=== PATIENT | female | born 1965 | race Caucasian/White ===

== ENCOUNTER 2020-05-13 17:12 | Outpatient (CLI) | payer BC, SELFPAY ==
--- NOTE | ~2020-05-13 | MM_ITS ---
EXAMINATION: MM screening zaida BI w cony HISTORY: Screening mammogram TECHNIQUE: Craniocaudal and mediolateral oblique 3-D tomosynthesis images were obtained and synthetic 2-D images were generated. CAD analysis was submitted and interpreted. COMPARISON: 08/20/2018, 05/05/2016, 03/09/2015 bilateral digital screening mammogram examinations BREAST PARENCHYMAL COMPOSITION: The breasts are heterogeneously dense, which may obscure small masses . FINDINGS: There are occasional scattered benign calcifications. There is no evidence of suspicious ma ss, calcification, or architectural distortion to suggest malignancy in either breast. There has been no suspicious interval change. IMPRESSION: 1. No mammographic evidence of malignancy. 2. Recommend routine screening mammography in one year. BI-RADS Category 2: Benign finding(s). Reviewed, dictated and finalized at location A. [employer]
== END 2020-05-13 17:13 | disposition home or self-care (01) ==
LOC: ANHIMG 17:15
PROVIDERS: Family Provider Family Medicine; PCP Internal Medicine; Visit Provider Student in an Organized Health Care Education/Training Program
DX: Z12.31 Encounter for screening mammogram for malignant neoplasm of breast (principal)
CPT/HCPCS: 77063; 77067

== ENCOUNTER 2021-08-29 00:38 | Day surgery (SDC) | payer BC, SELFPAY ==
[2021-08-11 15:11] VITALS: BMI 34.2
--- NOTE | 2021-08-29 07:27 | PM.HPGS ---
History of Present Illness History of Present Illness Consent: Risks, benefits, and alternatives have been discussed and questions answered. Patient agrees to proceed with procedure. Chief complaint: neoplasm screening Narrative: Fouzia Gunter is a 55 year old female Referred for colon cancer screening. Review of Systems Review of Systems: All systems reviewed & are unremarkable except as noted in HPI and below PMFSH Past Medical History Medical History Hypertension Miscarriage x5 Vaginal delivery x 2 Surgical History Surgical History History of dilation and curettage x 2 History of endometrial ablation History of laparoscopy History of tubal ligation S/P cholecystectomy Family History Family History Sibling Hypertension Mother Family history of chronic obstructive pulmonary disease Hypertension Cerebrovascular accident Father Family history of lung cancer Family history of malignant neoplasm of bone Family history of malignant neoplasm of breast in first degree relative Family history of Hodgkin's lymphoma Grandparent Family history of malignant neoplasm of breast in first degree relative Other Diabetes mellitus Social History Social History Smoking status: Never smoker Second hand tobacco smoke exposure: No Alcohol intake: never Substance use: never Substance use type: does not use Living arrangements: alone Spiritual care concerns: No Meds Home Medications and Allergies Home Medications Medication Instructions Recorded Confirmed Type metoprolol tartrate 50 mg tablet 50 mg PO DAILY 10/13/19 08/11/21 History folic acid 1 mg PO DAILY 08/11/21 08/11/21 History methotrexate sodium 0.7 mg SUBCUT WEEKLY 08/11/21 08/11/21 History Allergies Allergy/AdvReac Type Severity Reaction Status Date / Time amoxicillin [From Augmentin] Allergy Mild stomach Verified 08/29/21 09:37 pain clavulanic acid Allergy Mild stomach Verified 08/29/21 09:37 [From Augmentin] pain grass pollen Allergy Unknown uhnknown Verified 08/29/21 09:37 Sulfa (Sulfonamide Allergy Unknown unknown Verified 08/29/21 09:37 Antibiotics) sulfanilamide Allergy Unknown unknown Verified 08/29/21 09:37 tetanus toxoid, adsorbed Allergy Unknown unknown Verified 08/29/21 09:37 Tetanus Vaccines and Toxoid Allergy Unknown unknown Verified 08/29/21 09:37 1.SULFA 2.TETANUS Allergy Unknown unknown Uncoded 08/29/21 09:37 nkfa Allergy Unknown unknown Uncoded 08/29/21 09:37 SULFAMERAZINE (Generic Allergy unknown Uncoded 08/29/21 09:37 Allergy) Exam Resp: Auscultation: clear to auscultation bilaterally Cardio: Rate: regular rate Rhythm: regular rhythm GI: GI Palp: Yes Soft to palpation and No Tenderness to palpation present (GI) Assessment and Plan Assessment and plan (1) Colon cancer screening: Code(s): Z12.11 - Encounter for screening for malignant neoplasm of colon Status: Acute Assessment and Plan: Colonoscopy with possible biopsy or polypectomy or cautery or injection of substances.
[2021-08-29 09:38] VITALS: BP 134/83; PULSE 81; RESP 18; TEMP 37; O2SAT 99
[2021-08-29] MEDS: LACTATED RINGERS 1,000 ML 150 ML IV CONT (09:49)
--- NOTE | 2021-08-29 10:08 | WPDANESEPPF ---
Anes - Initial Pre Proc Eval Procedure: Operation Date: 08/29/21 10:30 Proposed Procedures p Screening Colonoscopy - Manuel Flores MD Date/Time: 08/29/21 10:08 Surgeon: Manuel Flores MD Pre Op Diagnosis: neoplasm screening Patient Data Age: 55 Gender: F Height: 1.75 m Weight: 103.5 kg Last Vital Signs Temp 98.6 F 08/29/21 09:38 Pulse 81 08/29/21 09:38 Resp 18 08/29/21 09:38 BP 134/83 08/29/21 09:38 Pulse Ox 99 08/29/21 09:38 Allergies Allergy/AdvReac Type Severity Reaction Status Date / Time amoxicillin [From Augmentin] Allergy Mild stomach Verified 08/29/21 09:37 pain clavulanic acid Allergy Mild stomach Verified 08/29/21 09:37 [From Augmentin] pain grass pollen Allergy Unknown uhnknown Verified 08/29/21 09:37 Sulfa (Sulfonamide Allergy Unknown unknown Verified 08/29/21 09:37 Antibiotics) sulfanilamide Allergy Unknown unknown Verified 08/29/21 09:37 tetanus toxoid, adsorbed Allergy Unknown unknown Verified 08/29/21 09:37 Tetanus Vaccines and Toxoid Allergy Unknown unknown Verified 08/29/21 09:37 1.SULFA 2.TETANUS Allergy Unknown unknown Uncoded 08/29/21 09:37 nkfa Allergy Unknown unknown Uncoded 08/29/21 09:37 SULFAMERAZINE (Generic Allergy unknown Uncoded 08/29/21 09:37 Allergy) Home Medications Medication Instructions Recorded Confirmed Type metoprolol tartrate 50 mg tablet 50 mg PO DAILY 10/13/19 08/11/21 History folic acid 1 mg PO DAILY 08/11/21 08/11/21 History methotrexate sodium 0.7 mg SUBCUT WEEKLY 08/11/21 08/11/21 History Patient hx anesthesia problems: none Family hx anesthesia problems: none Results Review: All pre-operative results and documents have been reviewed as part of the pre-operative evaluation. [facility] Past Medical History Medical History Hypertension Miscarriage x5 Vaginal delivery x 2 Surgical History Surgical History History of dilation and curettage x 2 History of endometrial ablation History of laparoscopy History of tubal ligation S/P cholecystectomy Family History Family History Sibling Hypertension Mother Family history of chronic obstructive pulmonary disease Hypertension Cerebrovascular accident Father Family history of lung cancer Family history of malignant neoplasm of bone Family history of malignant neoplasm of breast in first degree relative Family history of Hodgkin's lymphoma Grandparent Family history of malignant neoplasm of breast in first degree relative Other Diabetes mellitus Social History Social History Smoking status: Never smoker Second hand tobacco smoke exposure: No Alcohol intake: never Substance use: never Substance use type: does not use Living arrangements: alone Spiritual care concerns: No Anes - Eval Final PreProcedure Day of Procedure 08/29/21 10:08 Patient weight: obese Heart: regular rate and rhythm Lungs: clear to auscultation Airway: Mallampati scale class II Neurological: alert and oriented Last oral intake: >/= 8 hours ASA classification: III Emergent: no Anesthetic plan: proceed Anesthesia type and monitoring: general GIVS and standard monitoring Results Review: All pre-operative results and documents have been reviewed as part of the pre-operative evaluation. Informed Consent: The patient's anesthetic plan and its attendant risks and benefits were discussed with the patient/family/POA. Questions were solicited and answers provided to the satisfaction of the patient/family/POA.
[2021-08-29] MEDS: SIMETHICONE ORAL SUSPENSION 20 MG/0.3 ML 30 ML BOTTLE 0.6 ML IRRIGATION (10:29)
[2021-08-29 10:38] VITALS: BP 128/70; PULSE 90; RESP 22; O2SAT 99
[2021-08-29 10:48] VITALS: BP 125/68; PULSE 66; RESP 15; O2SAT 99
[2021-08-29 10:58] VITALS: BP 130/77; PULSE 71; RESP 19; O2SAT 99
== END 2021-08-29 11:02 | disposition home or self-care (01) ==
PROVIDERS: PCP Nurse Practitioner Family; Visit Provider Internal Medicine Gastroenterology
PROC: 0DJD8ZZ Inspection of Lower Intestinal Tract, Via Natural or Artificial Opening Endoscopic (ICD-10-PCS; CPT 45378; principal; 2021-08-29 10:30)
DX: Z12.11 Encounter for screening for malignant neoplasm of colon (principal); K57.30 Diverticulosis of large intestine without perforation or abscess without bleeding; K64.8 Other hemorrhoids; I10 Essential (primary) hypertension; E66.9 Obesity, unspecified; Z68.33 Body mass index [BMI] 33.0-33.9, adult
CPT/HCPCS: 45378; J2704; J7120

== ENCOUNTER 2021-10-22 09:27 | Outpatient (CLI) | payer BC, SELFPAY ==
--- NOTE | ~2021-10-22 | MM_ITS ---
EXAMINATION: MM screening zaida BI w cony HISTORY: Screening mammogram TECHNIQUE: Craniocaudal and mediolateral oblique 3-D tomosynthesis images were obtained and synthetic 2-D images were generated. CAD analysis was submitted and interpreted. COMPARISON: No prior mammogram is available for comparison at this institution. BREAST PARENCHYMAL COMPOSITION: The breasts are heterogeneously dense, which may obscure small masses . FINDINGS: There is no suspicious mass, calcification, or architectural distortion to suggest malignan cy in either breast. There has been no suspicious interval change. IMPRESSION: 1. No mammographic evidence of malignancy. 2. Recommend routine screening mammography in one year. BI-RADS Category 1: Negative Reviewed, dictated and finalized at location A.
== END 2021-10-22 09:28 | disposition home or self-care (01) ==
PROVIDERS: PCP Nurse Practitioner Family; Visit Provider Student in an Organized Health Care Education/Training Program
DX: Z12.31 Encounter for screening mammogram for malignant neoplasm of breast (principal)
CPT/HCPCS: 77063; 77067

== ENCOUNTER 2023-02-07 16:05 | Outpatient (CLI) | payer BC, SELFPAY ==
--- NOTE | ~2023-02-07 | MM_ITS ---
EXAMINATION: MM screening zaida BI w cony HISTORY: Screening mammogram TECHNIQUE: Craniocaudal and mediolateral oblique 3-D tomosynthesis images were obtained and synthetic 2-D images were generated. CAD analysis was submitted and interpreted. COMPARISON: 10/22/2021, 05/05/2020, 08/20/2018 bilateral screening mammogram examinations BREAST PARENCHYMAL COMPOSITION: The breasts are heterogeneously dense, which may obscure small masses . FINDINGS: There is no evidence of suspicious mass, calcification, or architectural distortion to sugg est malignancy in either breast. There has been no suspicious interval change. IMPRESSION: 1. No mammographic evidence of malignancy. 2. Recommend routine screening mammography in one year. BI-RADS Category 1: Negative Reviewed, dictated and finalized at location A.
== END 2023-02-07 16:06 | disposition home or self-care (01) ==
LOC: ANHIMG 16:07
PROVIDERS: PCP Nurse Practitioner Family; Visit Provider Registered Nurse
DX: Z12.31 Encounter for screening mammogram for malignant neoplasm of breast (principal)
CPT/HCPCS: 77063; 77067

== ENCOUNTER 2023-07-18 12:33 | Outpatient (CLI) | payer BC, SELFPAY ==
--- NOTE | ~2023-07-18 | DEXA_ITS ---
Bone Density Report Name: GENE CAMPBELL Age: 57 Sex: Female Ethnicity: White Date of : 1965 Indication: postmenopausal; screening for osteoporosis; height loss; history of glucocorticoids; rheumatoid arthritis; secondary osteoporosis; Referring Provider: TATIANNA CRANE Study: Bone densitometry was performed. Exam Date: July 18, 2023 Accession number: [id number] Bone Density: Region BMD T-score Z-score Classification AP Spine(L1-L4) 0.844 -1.8 -0.5 Osteopenia Femoral Neck (Left) 0.846 0.0 1.2 Normal Total Hip (Left) 0.888 -0.4 0.4 Normal Femoral Neck (Right) 0.865 0.1 1.4 Normal Total Hip (Right) 0.880 -0.5 0.4 Normal Total Hip Mean 0.884 -0.5 0.4 Normal World Health Organization criteria for BMD impression classify patients as: Normal (T-score at or above -1.0), Osteopenia (T-score between -1.0 and -2.5), or Osteoporosis (T-score at or below -2.5). 10-year Fracture Risk(1): Major Osteoporotic Fracture 11% Hip Fracture 0.3% Reported Risk Factors: [place] (), Neck BMD=0.846, BMI=34.2, glucocorticoids, rheumatoid arthritis, secondary osteoporosis (1) FRAX(R) Version 3.08. Fracture probability calculated for an untreated patient. Fracture probability may be lower if the patient has received treatment. Clinical Information Provided by Patient: Has taken Glucocorticoids Has rheumatoid arthritis Has secondary osteoporosis Patient maximum height was 71 No regular weight bearing exercise Onset of menses at age 13 Number of children 2 Missed period for more than 6 months in a row Impression: The patient has low bone mass, based on the Total Spine T-score. The patient has an estimated ten-year risk of hip fracture of 0.3% and an estimated ten-year risk of major fracture of 11%, based on the WHO FRAX algorithm. The patient has risk factors, including: history of glucocorticoid therapy. Discussion: BONE DENSITY IS LOW AT ONE OR MORE SKELETAL SITES. This patient's lowest T-score is low at one or more skeletal sites. It meets the World Health Organization's (WHO) criteria for ?low bone mass? (T-score between -1.0 and -2.5). The patient's 10-year risk of fracture as calculated by FRAX is less than the threshold where pharmacological therapy is recommended by the National Osteoporosis Foundation (NOF). However, all treatment decisions require clinical judgment and consideration of individual patient factors, including patient preferences, comorbidities, previous drug use, risk factors not captured in the FRAX model (e.g., frailty, falls, vitamin D deficiency, increased bone turnover, interval significant decline in bone density) and possible under or overestimation of fracture risk by FRAX. The patient should follow a healthful lifestyle (good nutrition with adequate calcium and
== END 2023-07-18 12:34 | disposition home or self-care (01) ==
LOC: ANHIMG 12:36
PROVIDERS: PCP Nurse Practitioner Family
DX: Z78.0 Asymptomatic menopausal state (principal); M85.88 Other specified disorders of bone density and structure, other site
CPT/HCPCS: 77080

== ENCOUNTER 2024-06-09 15:19 | Outpatient (CLI) | payer BC, SELFPAY ==
--- NOTE | ~2024-06-09 | MM_ITS ---
EXAMINATION: MM screening zaida BI w cony HISTORY: Screening mammogram, family history of breast cancer in her sister. TECHNIQUE: Craniocaudal and mediolateral oblique 3-D tomosynthesis images were obtained and synthetic 2-D images were generated. CAD analysis was submitted and interpreted. COMPARISON: 02/07/2023, 10/22/2021, 05/13/2020 BREAST PARENCHYMAL COMPOSITION:Not Dense. There are scattered areas of fibroglandular density. FINDINGS: No suspicious mass, calcification, or architectural distortion are identified in either angelica ast to suggest malignancy. There has been no suspicious interval change. IMPRESSION: No mammographic evidence of malignancy. Recommend routine screening mammography in one year. BI-RADS Category 1: Negative Reviewed, dictated and finalized at location . OWS SOFTWARE DEVELOPER
--- OUTSIDE RECORDS SUMMARY | 2024-06-09 17:54 | XMS_ITS | Referral Summary ---
Author Organization [facility] [place] [facility] Address [address] [place] [id number] Care Team Providers Care Municipal Firefighter Name Role Phone CharlyRadha oneil YONATAN Primary Care Provider [phone] Allergies Active Allergy Reactions Criticality Noted Date Comments Amoxicillin-Pot Clavulanate Stomach upset High 06/04 Sulfa Dyne Urticaria Medium 03/31/2021 Tetanus And Diphther. Tox (Pf) Anaphylaxis High 05/17 Medications folic acid (FOLVITE) 1 mg tablet Take 1 tablet (1,000 mcg total) by mouth daily Active methotrexate 25 mg/mL injection solution methotrexate sodium 25 mg/mL solution 0 Active metoprolol XL (TOPROL-XL) 25 mg extended release tablet metoprolol succinate 25 mg tablet extended release 24 hr 1 Active multivit [id number]-AD-[id number] b 186 (Hair, Skin and Nails Advanced) 3.3 mg iron-25 mcg tablet Take by mouth 9 Active nystatin 100,000 unit/mL suspension SHAKE LIQUID AND TAKE 5 ML BY MOUTH FOUR TIMES DAILY 3 Active valACYclovir (VALTREX) 1 gram tablet Take 1 tablet (1,000 mg total) by mouth 2 (two) times a day 3 Active gabapentin (NEURONTIN) 300 mg capsuleIndicati ons:Neuropathic Pain Take 1 capsule (300 mg total) by mouth as directed Take 300 mg by mouth each night for one week, then take 300 mg twice day for one week, then take 300 mg three times a day thereafter 90 capsule 3 3 Active Active Problems No known active problems Social History Tobacco Use Types Packs/Day Years Used Date Smoking Tobacco: Never Smokeless Tobacco: Never Tobacco Cessation:Counseling Given: No Personal Safety Answer Date Recorded Getting School Help Needed Not on file 06/10 Comments Unknown Sex and Gender Information Value Date Recorded Sex Assigned at Not on file 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
--- OUTSIDE RECORDS SUMMARY | 2024-06-09 17:54 | XMS_ITS | Clinical Summary ---
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 Gender Identity Not on file Sexual Orientation Not on file Obstetrics History Last Filed Vital Signs Vital Sign Reading [...] 12/21/2022 2:10 PM CDT Plan of Treatment Health Maintenance Due Date Last Done Comments Breast Cancer Screening-Mammogram 1965 Cervical Cancer Screening 1965 Colon Cancer Screening-Colonoscopy 1965 Depression Screening 1965 Hepatitis C Screening 1965 DTaP/Tdap/Td Vaccine (1 - Tdap) 10/16/1975 Hepatitis B Screening 1982 Regular Well Visit/Exam 18-64 1982 Pneumococcal vaccine <65 (1 of 2 - PCV) 10/16/1983 Influenza Vaccine (#1) 2023 Zoster Vaccine Completed 11/21/2021, 10/06/2021 Insurance CHOICE [facility] PPO [place] Care Teams Pastry Wrapper Relationship Specialty Start Date End Date Radha Rincon NP PCP - General Nurse Practitioner 11/14/22
--- OUTSIDE RECORDS SUMMARY | 2024-06-09 17:55 | XMS_ITS | Patient Health Summary ---
Author Organization [facility] Address [address] [place] [address] Care Team Providers Care Fisher Quahog Name Role Phone Ly Wilson Primary Care Provider [phone] Note from [facility],non-owned Affiliates and Associated Physician Practices is amultiple site organization consisting of ambulatory clinics and hospital sitesin [place], [place], [place] and [place]. This disclosure is being madepursuant to the Care Everywhere program and may not contain all information available regarding this patient. Last updated 18.[facility] Allergies * Augmentin(GI Discomfort) -Low Criticality * Sulfa Drugs(Urticaria) -Medium Criticality * Sulfacetamide(Rash) -Medium Criticality * Tetanus Toxoid(Swelling,Angioedema) -High Criticality Medications * Be aware that medications may not be up to date on this document. Alwaysverify current medications with the patient. * metoprolol succinate XL 24hr (TOPROL XL) 25 MG tablet(Started 11/12/2020) Take 2 (two) tablets by mouth 1 (one) time * Enbrel AutoTouch AutoInjector(Started 12/26/2023) Use 1 (one) device as directed * Etanercept (Enbrel Mini) 50 MG/ML SOCT(Started 12/26/2023) Inject 50 mg subcutaneously every 7 days Reasons: Rheumatoid Arthritis 3 refills by 12/25/2024 * vitamin D3 (Cholecalciferol) 25 MCG (1000 UNITS) tablet Take 1 (one) tablet by mouth once daily * lactobacillus extra strength (Florajen) capsule Take 1 (one) capsule by mouth 3 times daily * Multiple Vitamins-Minerals (HAIR SKIN & NAILS ADVANCED PO) * folic acid (Folvite) 1 MG tablet(Started 02/20/2024) Take 1 (one) tablet by mouth once daily 3 refills by 02/19/2025 * albuterol HFA (Proventil; Ventolin; Proair) 108 (90 Base) MCG/ACT inhaler (Started 04/22/2024) INHALE 2 PUFFS BY MOUTH EVERY 4 HOURS DIRECTED FOR SHORTNESS OF BREATH * predniSONE (Deltasone) 5 MG tablet(Started 06/02/2024) Take 5 mg daily as needed for arthritis while holding Methotrexate Reasons: Rheumatoid Arthritis * leflunomide (Arava) 20 MG tablet(Started 06/02/2024) Take 1 (one) tablet by mouth once daily 3 refills by 06/02/2025 Ended Medications* predniSONE (Deltasone) 5 MG tablet(Started 08/22/2022) (Discontinued) Take 5 mg daily as needed for arthritis while holding Methotrexate Reasons: Rheumatoid Arthritis * Methotrexate, PF, (Rasuvo) 17.5 MG/0.35ML(Started 12/26/2023)(Discontinued) Inject 17.5 mg subcutaneously every 7 days Reasons: Rheumatoid Arthritis 2 refills by 12/25/2024 Active Problems Problem Noted Date Diagnosed Date 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 01/06/2021 Rheumatoid arthritis involvi ng multiple sites with positive rheumatoid factor 12/02/2020 intermediate current use of immunosuppressive drug 12/02/2020 FAYE positive 12/02/2020 Social History Tobacco Use Types Packs/Day Years Used Date Smoking Tobacco: Never Smokeless Tobacco: Never Tobacco Cessation:Counseling Given: Not Answered Alcohol Use Standard Drinks/Week Comments Not Currently 0 (1 standard drink = 0.6 oz pur e alcohol) PHQ-2 Answer Date Recorded Patient Health Questionnaire-2 Score 0 08/20/2023 Sex and Gender Information Value Date Recorded Sex Assigned at Not on file Gender Identity Not on file Sexual Orientation Not on file Last Filed Vital Signs Vital Sign Reading Time Taken Comments Blood Pressure 134/86 06/02/2024 3:21 PM ELECTRICAL INSTRUMENT REPAIRER Pulse 65 06/02/2024 3:21 PM ELECTRICAL INSTRUMENT REPAIRER Temperature 36.1 C (96.9 F) 06/02/2024 3:21 PM ELECTRICAL INSTRUMENT REPAIRER Respiratory Rate 18 11/02/2021 10:16 AM CDT Oxygen Saturation 96% 06/02/2024 3:21 PM ELECTRICAL INSTRUMENT REPAIRER Inhaled Oxygen Concentration - - Weight 112 kg (247 lb) 06/02/2024 3:21 PM ELECTRICAL INSTRUMENT REPAIRER Height 175.3 cm (5' 9 ) 06/02/2024 3:21 PM ELECTRICAL INSTRUMENT REPAIRER Body Mass Index 36.48 06/02/2024 3:21 PM ELECTRICAL INSTRUMENT REPAIRER Procedures * COMPREHENSIVE METABOLIC PANEL(Performed 05/30/2024) Performed for Rheumatoid arthritis involving multiple sites with positive rheumatoid factor (HCC), 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, 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 * CBC W AUTO DIFFERENTIAL(Performed 05/30/2024) Performed for Rheumatoid arthritis involving multiple sites with positive rheumatoid factor (HCC), 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, 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 * COMPREHENSIVE METABOLIC PANEL(Performed 02/08/2024) Performed for Rheumatoid arthritis involving multiple sites with positive rheumatoid factor (HCC), 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, intermediate current use of immunosuppressive drug, Transaminitis, Anti-TPO antibodies present * CBC W AUTO DIFFERENTIAL(Performed 02/08/2024) Performed for Rheumatoid arthritis involving multiple sites with positive rheumatoid factor (HCC), 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, 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, Transaminitis, Anti-TPO antibodies present * TSH REFLEX FREE T4(Performed 08/28/2023) * COMPREHENSIVE METABOLIC PANEL(Performed 08/28/2023) Performed for Rheumatoid arthritis involving multiple sites with positive rheumatoid factor (HCC), 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, intermediate current use of immunosuppressive drug, Transaminitis, Anti-TPO antibodies present * CBC W AUTO DIFFERENTIAL(Performed 08/28/2023) Performed for Rheumatoid arthritis involving multiple sites with positive rheumatoid factor (HCC), 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, 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, Transaminitis, Anti-TPO antibodies present * COMPREHENSIVE METABOLIC PANEL(Performed 07/12/2023) Performed for 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, Rheumatoid arthritis involving multiple sites with positive rheumatoid factor (HCC), intermediate current use of immunosuppressive drug, Transaminitis * COMPREHENSIVE METABOLIC PANEL(Performed 03/12/2023) Performed for 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, Rheumatoid arthritis involving multiple sites with positive rheumatoid factor (HCC), 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, Transaminitis * COMPREHENSIVE METABOLIC PANEL(Performed 03/02/2023) Performed for Rheumatoid arthritis involving multiple sites with positive rheumatoid factor (HCC), intermediate current use of immunosuppressive drug, 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 * CBC W AUTO DIFFERENTIAL(Performed 03/02/2023) Performed for Rheumatoid arthritis involving multiple sites with positive rheumatoid factor (HCC), 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, 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 * XR WRIST RIGHT 2VW(Performed 02/08/2023) Performed for Rheumatoid arthritis involving multiple sites with positive rheumatoid factor (HCC) * XR HAND RIGHT 3VW OR MORE(Performed 02/08/2023) Performed for Rheumatoid arthritis involving multiple sites with positive rheumatoid factor (HCC) * XR HAND LEFT 3VW OR MORE(Performed 02/08/2023) Performed for Rheumatoid arthritis involving multiple sites with positive rheumatoid factor (HCC) * XR FOOT RIGHT 3VW OR MORE(Performed 02/08/2023) Performed for Rheumatoid arthritis involving multiple sites with positive rheumatoid factor (HCC) * XR FOOT LEFT 3VW OR MORE(Performed 02/08/2023) Performed for Rheumatoid arthritis involving multiple sites with positive rheumatoid factor (HCC) * XR WRIST LEFT 2VW(Performed 02/08/2023) Performed for Rheumatoid arthritis involving multiple sites with positive rheumatoid factor (HCC) * COMPREHENSIVE METABOLIC PANEL(Performed 10/12/2022) Performed for 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, Rheumatoid arthritis involving multiple sites with positive rheumatoid factor (HCC), intermediate current use of immunosuppressive drug, Transaminitis * CBC W AUTO DIFFERENTIAL(Performed 10/12/2022) Performed for Rheumatoid arthritis involving multiple sites with positive rheumatoid factor (HCC), 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, 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 * COMPREHENSIVE METABOLIC PANEL(Performed 09/04/2022) Performed for 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, Rheumatoid arthritis involving multiple sites with positive rheumatoid factor (HCC), intermediate current use of immunosuppressive drug, Transaminitis * CBC W AUTO DIFFERENTIAL(Performed 09/04/2022) Performed for Rheumatoid arthritis involving multiple sites with positive rheumatoid factor (HCC), 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, intermediate current use of immunosuppressive drug * COMPREHENSIVE METABOLIC PANEL(Performed 08/21/2022) Performed for Rheumatoid arthritis involving multiple sites with positive rheumatoid factor (HCC), 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, 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 * CBC W AUTO DIFFERENTIAL(Performed 08/21/2022) Performed for Rheumatoid arthritis involving multiple sites with positive rheumatoid factor (HCC), 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, intermediate current use of immunosuppressive drug * COMPREHENSIVE METABOLIC PANEL(Performed 08/14/2022) Performed for Rheumatoid arthritis involving multiple sites with positive rheumatoid factor (HCC), 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, 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 * CBC W AUTO DIFFERENTIAL(Performed 08/14/2022) Performed for Rheumatoid arthritis involving multiple sites with positive rheumatoid factor (HCC), 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, intermediate current use of immunosuppressive drug * COMPREHENSIVE METABOLIC PANEL(Performed 05/23/2022) Performed for Rheumatoid arthritis involving multiple sites with positive rheumatoid factor (HCC), 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, 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 * CBC W AUTO DIFFERENTIAL(Performed 05/23/2022) Performed for Rheumatoid arthritis involving multiple sites with positive rheumatoid factor (HCC), 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, intermediate current use of immunosuppressive drug * COMPREHENSIVE METABOLIC PANEL(Performed 03/29/2022) Performed for Rheumatoid arthritis involving multiple sites with positive rheumatoid factor (HCC), 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, 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 * CBC W AUTO DIFFERENTIAL(Performed 03/29/2022) Performed for Rheumatoid arthritis involving multiple sites with positive rheumatoid factor (HCC), 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, intermediate current use of immunosuppressive drug * CBC W AUTO DIFFERENTIAL(Performed 02/10/2022) Performed for Rheumatoid arthritis involving multiple sites with positive rheumatoid factor (HCC), 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, Transaminitis * COMPREHENSIVE METABOLIC PANEL(Performed 02/10/2022) Performed for Rheumatoid arthritis involving multiple sites with positive rheumatoid factor (HCC), 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, Transaminitis * XR WRIST LEFT 2VW(Performed 11/02/2021) Performed for Rheumatoid arthritis involving multiple sites with positive rheumatoid factor (HCC) * XR WRIST RIGHT 2VW(Performed 11/02/2021) Performed for Rheumatoid arthritis involving multiple sites with positive rheumatoid factor (HCC) * XR HAND RIGHT 3VW OR MORE(Performed 11/02/2021) Performed for Rheumatoid arthritis involving multiple sites with positive rheumatoid factor (HCC) * XR HAND LEFT 3VW OR MORE(Performed 11/02/2021) Performed for Rheumatoid arthritis involving multiple sites with positive rheumatoid factor (HCC) * XR FOOT RIGHT 3VW OR MORE(Performed 11/02/2021) Performed for Rheumatoid arthritis involving multiple sites with positive rheumatoid factor (HCC) * XR FOOT LEFT 3VW OR MORE(Performed 11/02/2021) Performed for Rheumatoid arthritis involving multiple sites with positive rheumatoid factor (HCC) * CBC W AUTO DIFFERENTIAL(Performed 10/31/2021) Performed for Rheumatoid arthritis involving multiple sites with positive rheumatoid factor (HCC), 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, Transaminitis * COMPREHENSIVE METABOLIC PANEL(Performed 10/31/2021) Performed for Rheumatoid arthritis involving multiple sites with positive rheumatoid factor (HCC), 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, Transaminitis * COMPREHENSIVE METABOLIC PANEL(Performed 07/29/2021) Performed for Rheumatoid arthritis involving multiple sites with positive rheumatoid factor (HCC), 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 * CBC W AUTO DIFFERENTIAL(Performed 07/29/2021) Performed for Rheumatoid arthritis involving multiple sites with positive rheumatoid factor (HCC), 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 * COMPREHENSIVE METABOLIC PANEL(Performed 06/08/2021) Performed for Rheumatoid arthritis involving multiple sites with positive rheumatoid factor (HCC), 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 * CBC W AUTO DIFFERENTIAL(Performed 06/08/2021) Performed for Rheumatoid arthritis involving multiple sites with positive rheumatoid factor (HCC), 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 * COMPREHENSIVE METABOLIC PANEL(Performed 03/15/2021) Performed for Rheumatoid arthritis involving multiple sites with positive rheumatoid factor (HCC), 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 * CBC W AUTO DIFFERENTIAL(Performed 03/15/2021) Performed for Rheumatoid arthritis involving multiple sites with positive rheumatoid factor (HCC), 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 * CBC W AUTO DIFFERENTIAL(Performed 02/02/2021) Performed for Rheumatoid arthritis involving multiple sites with positive rheumatoid factor (HCC), 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 * COMPREHENSIVE METABOLIC PANEL(Performed 02/02/2021) Performed for Rheumatoid arthritis involving multiple sites with positive rheumatoid factor (HCC), 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 * CBC W AUTO DIFFERENTIAL(Performed 02/02/2021) Performed for Rheumatoid arthritis involving multiple sites with positive rheumatoid factor (HCC), 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 * COMPREHENSIVE METABOLIC PANEL(Performed 12/31/2020) Performed for Rheumatoid arthritis involving multiple sites with positive rheumatoid factor (HCC), 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 * CBC W AUTO DIFFERENTIAL(Performed 12/31/2020) Performed for Rheumatoid arthritis involving multiple sites with positive rheumatoid factor (HCC), 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 * LAB RESULTS ORDER(Performed 12/15/2020) * FAYE BLOOD TITER(Performed 12/08/2020) * T4 FREE(Performed 12/08/2020) * QUANTIFERON-TB GOLD PLUS 1-TUBE(Performed 12/08/2020) * PROTEIN CREATININE RATIO URINE RANDOM PNL(Performed 12/08/2020) * TSH REFLEX FREE T4(Performed 12/08/2020) * HEPATITIS B CORE ANTIBODY TOTAL(Performed 12/08/2020) * HEPATITIS B SURFACE ANTIBODY(Performed 12/08/2020) * HEPATITIS B SURFACE ANTIGEN W RFLX CONFIRMATION(Performed 12/08/2020) * SS-B (SJOGREN'S) ANTIBODY(Performed 12/08/2020) * SS-A (SJOGREN'S) ANTIBODY(Performed 12/08/2020) * EMERY (SM) ANTIBODY ERNIE(Performed 12/08/2020) * CYCLIC CITRULLINATED PEPTIDE(CCP) AB IGG(Performed 12/08/2020) * RHEUMATOID FACTOR BLOOD QUANTITATIVE(Performed 12/08/2020) * COMPLEMENT C4(Performed 12/08/2020) * COMPLEMENT C3(Performed 12/08/2020) * DNA ANTIBODY DOUBLE STRANDED(Performed 12/08/2020) * FAYE BLOOD SCREEN W/REFLEX TITER(Performed 12/08/2020) * URINALYSIS W/MICROSCOPIC REFLEX TO CULTURE(Performed 12/08/2020) * CBC W AUTO DIFFERENTIAL(Performed 12/08/2020) * COMPREHENSIVE METABOLIC PANEL(Performed 12/08/2020) * RHEUMATOID FACTOR IGG/IGM/IGA AB(Performed 12/08/2020) * CULTURE URINE REFLEXED III(Performed 12/08/2020) * XR FOOT RIGHT 3VW OR MORE(Performed 12/02/2020) Performed for Rheumatoid arthritis involving multiple sites with positive rheumatoid factor (HCC), Immunosuppression due to drug therapy (HCC), FAYE positive, intermediate current use of immunosuppressive drug, 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 * XR FOOT LEFT 3VW OR MORE(Performed 12/02/2020) Performed for Rheumatoid arthritis involving multiple sites with positive rheumatoid factor (HCC), Immunosuppression due to drug therapy (HCC), FAYE positive, 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, 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 * XR WRIST LEFT 2VW(Performed 12/02/2020) Performed for Rheumatoid arthritis involving multiple sites with positive rheumatoid factor (HCC), Immunosuppression due to drug therapy (HCC), FAYE positive, 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, 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 * XR WRIST RIGHT 2VW(Performed 12/02/2020) Performed for Rheumatoid arthritis involving multiple sites with positive rheumatoid factor (HCC), Immunosuppression due to drug therapy (HCC), FAYE positive, 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, 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 * XR HAND LEFT 3VW OR MORE(Performed 12/02/2020) Performed for Rheumatoid arthritis involving multiple sites with positive rheumatoid factor (HCC), Immunosuppression due to drug therapy (HCC), FAYE positive, 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 White Blood Cell Count 10.4 3.8 - 10.8 Thousand/ uL [facility] RBC 4.99 3.80 - 5.10 Million/u L [facility] Hemoglobin 16.4(H) 11.7 - 15.5 g/dL [facility] Hematocrit 48.3(H) 35.0 - 45.0 % [facility] MCV 96.8 80.0 - 100.0 fL [facility] MCH 32.9 27.0 - 33.0 pg [facility] MCHC 34.0 32.0 - 36.0 g/dL [facility] Comment: For adults, a slight decrease in the calculated MCHC value (in the range of 30 to 32 g/dL) is most likely not clinically significant; however, it should be interpreted with caution in correlation with other red cell parameters and the patient's clinical condition. RDW 12.1 11.0 - 15.0 % [facility] Platelet Count 221 140 - 400 Thousand/ uL [facility] MPV 10.5 7.5 - 12.5 fL [facility] Neutrophil Absolute 6032 1500 - 7800 cells/uL [facility] Absolute Bands [facility] Metamyelocytes Absolute [facility] Myelocytes Absolute [facility] Absolute Prolymphocytes [facility] Lymphocytes Absolute 3307 850 - 3900 cells/uL [facility] Absolute Monocytes 905 200 - 950 cells/uL [facility] Eosinophils Absolute 73 15 - 500 cells/uL [facility] Basophils Absolute 83 0 - 200 cells/uL [facility] Absolute Blasts [facility] nRBC Absolute [facility] Granulocytes % 58 % [facility] Band Neutrophil [facility] Metamyelocytes [facility] Myelocytes [facility] Promyelocytes [facility] Lymphocytes % 31.8 % [facility] Lymphocyte Reactive [facility] Monocytes % 8.7 % [facility] Eosinophils % 0.7 % [facility] Basophils % 0.8 % [facility] Comment: REPORT COMMENT: FASTING:YES Test Performed at: [facility] [address] EDSON SANDERSON MD [facility] Comments [facility] Comment: REPORT COMMENT: FASTING:YES Test Performed at: [facility] [address] EDSON SANDERSON MD Blood BLOOD SPECIMEN / Unknown 05/30/2024 8:10 AM ELECTRICAL INSTRUMENT REPAIRER 05/30/2024 8:11 AM ELECTRICAL INSTRUMENT REPAIRER Giacomo Washburn MD LAB - HEMATOLOGY ORD ERABLES [address] [address] * (ABNORMAL) COMPREHENSIVE METABOLIC PANEL (05/30/2024 8:10 AM ELECTRICAL INSTRUMENT REPAIRER) Only the most recent of20 resultswithin the time period is included. Glucose 104(H) 65 - 99 mg/dL [facility] Comment: Fasting reference interval For someone without known diabetes, a glucose value between 100 and 125 mg/dL is consistent with prediabetes and should be confirmed with a follow-up test. BUN 14 7 - 25 mg/dL [facility] Creatinine 0.70 0.50 - 1.03 mg/dL [facility] eGFR by Cystatin C 100 > OR = 60 mL/min/1. 73m2 [facility] BUN/Creatinine Ratio SEE NOTE: 6 - 22 (calc) [facility] Comment: Not Reported: BUN and Creatinine are within reference range. Sodium 135 135 - 146 mmol/L [facility] Potassium 3.9 3.5 - 5.3 mmol/L [facility] Chloride 100 98 - 110 mmol/L [facility] CO2 28 20 - 32 mmol/L [facility] Calcium 9.2 8.6 - 10.4 mg/dL [facility] Protein Total 6.7 6.1 - 8.1 g/dL [facility] Albumin 4.2 3.6 - 5.1 g/dL [facility] Globulin Total 2.5 1.9 - 3.7 g/dL (calc) [facility] Albumin/Globulin Ratio 1.7 1.0 - 2.5 (calc) [facility] Bilirubin Total 0.5 0.2 - 1.2 mg/dL [facility] Alkaline Phosphatase 84 37 - 153 U/L [facility] AST 13 10 - 35 U/L [facility] ALT 13 6 - 29 U/L [facility] Comment: Test Performed at: [facility] [address] EDSON SANDERSON MD Blood BLOOD SPECIMEN / Unknown 05/30/2024 8:10 AM ELECTRICAL INSTRUMENT REPAIRER 05/30/2024 8:11 AM ELECTRICAL INSTRUMENT REPAIRER Giacomo Washburn MD LAB - CHEMISTRY [facility] Performing Organization Address City/[facility]/ZIP Co de Phone Number [address] [address] * TSH REFLEX FREE T4 (08/28/2023 1:44 PM CDT) Only the most recent of2 resultswithin the time period is included. TSH with Reflex FT4 1.60 0.40 - 4.50 mIU/L [facility] Comment: Test Performed at: [employer] [address] [place] [address] EDSON SANDERSON MD 08/28/2023 1:44 PM CDT 08/28/2023 1:47 PM CDT Giacomo Washbrun MD LAB - CHEMISTRY [facility] Performing Organization Address City/[facility]/ZIP Co de Phone Number [address] [address] * XR FOOT RIGHT 3VW OR MORE (02/08/2023 3:55 PM CDT) Only the most recent of3 resultswithin the time period is included. Anatomical Region Laterality Modality Ankle / Foot Radiographic Clementina ging 02/08/2023 6:48 PM CDT Impressions 02/08/2023 6:54 PM CDT IMPRESSION: 1. Right left hands: Normal. 2. Right and left wrists: Minimal first carpometacarpal osteoarthritis. 3. Right foot: Normal. 4. Left foot: A nonmarginal erosion in the first metatarsal distal shaft, unchanged. The joint spaces are normal. > Interpreting Provider: Med Davis MD on 02/08/2023 6:54 PM Narrative 02/08/2023 6:54 PM CDT PROCEDURE: XR HAND RIGHT 3VW OR MORE, XR WRIST RIGHT 2VW, XR HAND LEFT 3VW OR MORE, XR FOOT RIGHT 3VW OR MORE, XR FOOT LEFT 3VW OR MORE, XR WRIST LEFT 2VW DATE/TIME OF EXAM: 02/08/2023 3:55 PM CLINICAL INFORMATION: None relevant/not provided if blank. Indication: M05.79: Rheumatoid arthritis involving multiple sites with positive rheumatoid factor (CMS/HCC) Additional History: COMPARISON: Right and left and, wrist, and foot x-rays dated 11/02/2021 FINDINGS: Right hand: No fracture or dislocation is present. The joint spaces are normal. No erosions are seen. Bone density is normal. The soft tissues are normal. Left hand: No fracture or dislocation is present. The joint spaces are normal. No erosions are seen. Bone density is normal. The soft tissues are normal. Right wrist: No fracture or dislocation is present. Minimal first carpometacarpal osteoarthritis. The other joint spaces are normal. No erosions are seen. Bone density is normal. The soft tissues are normal. Left wrist: No fracture or dislocation is present. Minimal first carpometacarpal osteoarthritis. The other joint spaces are normal. No erosions are seen. Bone density is normal. The soft tissues are normal. Right foot: No fracture or dislocation is present. The joint spaces are normal. No erosions are seen. Bone density is normal. The soft tissues are normal. Left foot: No fracture or dislocation is present. The joint spaces are normal. There is a defect in the medial cortex of the first metatarsal distal shaft located 11 mm proximal to the articular surface consistent with a nonmarginal erosion, unchanged. No other erosions are seen. Bone density is normal. The soft tissues are normal. Procedure Note Med Davis MD - 02/08/2023 PROCEDURE: XR HAND RIGHT 3VW OR MORE, XR WRIST RIGHT 2VW, XR HAND PJML5ES OR MORE, XR FOOT RIGHT 3VW OR MORE, XR FOOT LEFT 3VW OR MORE, XR WRISTLEFT 2VW DATE/TIME OF EXAM: 02/08/2023 3:55 PM CLINICAL INFORMATION: None relevant/not provided if blank. Indication: M05.79: Rheumatoid arthritis involving multiple sites with positive rheumatoid factor (CMS/HCC) Additional History: COMPARISON: Right and left and, wrist, and foot x-rays dated 11/02/2021 FINDINGS: Right hand: No fracture or dislocation is present. The joint spaces are normal. No erosions are seen. Bone density is normal. The soft tissues arenormal. Left hand: No fracture or dislocation is present. The joint spaces are normal. No erosions are seen. Bone density is normal. The soft tissues arenormal. Right wrist: No fracture or dislocation is present. Minimal first carpometacarpal osteoarthritis. The other joint spaces are normal. No erosions are seen. Bone density is normal. The soft tissues are normal. Left wrist: No fracture or dislocation is present. Minimal first carpometacarpal osteoarthritis. The other joint spaces are normal. No erosions are seen. Bone density is normal. The soft tissues are normal. Right foot: No fracture or dislocation is present. The joint spaces are normal. No erosions are seen. Bone density is normal. The soft tissues arenormal. Left foot: No fracture or dislocation is present. The joint spaces are normal.There is a defect in the medial cortex of the first metatarsal distal shaft located 11 mm proximal to the articular surface consistent with a nonmarginal erosion, unchanged. No other erosions are seen. Bonedensity is normal. The soft tissues are normal. IMPRESSION: 1. Right left hands: Normal. 2. Right and left wrists: Minimal first carpometacarpal osteoarthritis. 3. Right foot: Normal. 4. Left foot: A nonmarginal erosion in the first metatarsal distalshaft, unchanged. The joint spaces are normal. > Interpreting Provider: Med Davis MD on 02/08/2023 6:54 PM Giacomo Washburn MD DIAGNOSTIC IMAGING O RDERABLES * XR FOOT LEFT 3VW OR MORE (02/08/2023 3:55 PM CDT) Only the most recent of3 resultswithin the time period is included. Anatomical Region Laterality Modality Ankle / Foot Radiographic Clementina ging 02/08/2023 6:48 PM CDT Impressions 02/08/2023 6:54 PM CDT IMPRESSION: 1. Right left hands: Normal. 2. Right and left wrists: Minimal first carpometacarpal osteoarthritis. 3. Right foot: Normal. 4. Left foot: A nonmarginal erosion in the first metatarsal distal shaft, unchanged. The joint spaces are normal. > Interpreting Provider: Med Davis MD on 02/08/2023 6:54 PM Narrative 02/08/2023 6:54 PM CDT PROCEDURE: XR HAND RIGHT 3VW OR MORE, XR WRIST RIGHT 2VW, XR HAND LEFT 3VW OR MORE, XR FOOT RIGHT 3VW OR MORE, XR FOOT LEFT 3VW OR MORE, XR WRIST LEFT 2VW DATE/TIME OF EXAM: 02/08/2023 3:55 PM CLINICAL INFORMATION: None relevant/not provided if blank. Indication: M05.79: Rheumatoid arthritis involving multiple sites with positive rheumatoid factor ([facility]) Additional History: COMPARISON: Right and left and, wrist, and foot x-rays dated 11/02/2021 FINDINGS: Right hand: No fracture or dislocation is present. The joint spaces are normal. No erosions are seen. Bone density is normal. The soft tissues are normal. Left hand: No fracture or dislocation is present. The joint spaces are normal. No erosions are seen. Bone density is normal. The soft tissues are normal. Right wrist: No fracture or dislocation is present. Minimal first carpometacarpal osteoarthritis. The other joint spaces are normal. No erosions are seen. Bone density is normal. The soft tissues are normal. Left wrist: No fracture or dislocation is present. Minimal first carpometacarpal osteoarthritis. The other joint spaces are normal. No erosions are seen. Bone density is normal. The soft tissues are normal. Right foot: No fracture or dislocation is present. The joint spaces are normal. No erosions are seen. Bone density is normal. The soft tissues are normal. Left foot: No fracture or dislocation is present. The joint spaces are normal. There is a defect in the medial cortex of the first metatarsal distal shaft located 11 mm proximal to the articular surface consistent with a nonmarginal erosion, unchanged. No other erosions are seen. Bone density is normal. The soft tissues are normal. Procedure Note Med Davis MD - 02/08/2023 PROCEDURE: XR HAND RIGHT 3VW OR MORE, XR WRIST RIGHT 2VW, XR HAND [id number] OR MORE, XR FOOT RIGHT 3VW OR MORE, XR FOOT LEFT 3VW OR MORE, XR WRISTLEFT 2VW DATE/TIME OF EXAM: 02/08/2023 3:55 PM CLINICAL INFORMATION: None relevant/not provided if blank. Indication: M05.79: Rheumatoid arthritis involving multiple sites with positive rheumatoid factor ([facility]/HCC) Additional History: COMPARISON: Right and left and, wrist, and foot x-rays dated 11/02/2021 FINDINGS: Right hand: No fracture or dislocation is present. The joint spaces are normal. No erosions are seen. Bone density is normal. The soft tissues arenormal. Left hand: No fracture or dislocation is present. The joint spaces are normal. No erosions are seen. Bone density is normal. The soft tissues arenormal. Right wrist: No fracture or dislocation is present. Minimal first carpometacarpal osteoarthritis. The other joint spaces are normal. No erosions are seen. Bone density is normal. The soft tissues are normal. Left wrist: No fracture or dislocation is present. Minimal first carpometacarpal osteoarthritis. The other joint spaces are normal. No erosions are seen. Bone density is normal. The soft tissues are normal. Right foot: No fracture or dislocation is present. The joint spaces are normal. No erosions are seen. Bone density is normal. The soft tissues arenormal. Left foot: No fracture or dislocation is present. The joint spaces are normal.There is a defect in the medial cortex of the first metatarsal distal shaft located 11 mm proximal to the articular surface consistent with a nonmarginal erosion, unchanged. No other erosions are seen. Bonedensity is normal. The soft tissues are normal. IMPRESSION: 1. Right left hands: Normal. 2. Right and left wrists: Minimal first carpometacarpal osteoarthritis. 3. Right foot: Normal. 4. Left foot: A nonmarginal erosion in the first metatarsal distalshaft, unchanged. The joint spaces are normal. > Interpreting Provider: Med Davis MD on 02/08/2023 6:54 PM Giacomo Washburn MD DIAGNOSTIC IMAGING O RDERABLES * XR HAND RIGHT 3VW OR MORE (02/08/2023 3:55 PM CDT) Only the most recent of3 resultswithin the time period is included. Anatomical Region Laterality Modality Wrist / Hand Radiographic Clementina ging 02/08/2023 6:48 PM CDT Impressions 02/08/2023 6:54 PM CDT IMPRESSION: 1. Right left hands: Normal. 2. Right and left wrists: Minimal first carpometacarpal osteoarthritis. 3. Right foot: Normal. 4. Left foot: A nonmarginal erosion in the first metatarsal distal shaft, unchanged. The joint spaces are normal. > Interpreting Provider: Med Davis MD on 02/08/2023 6:54 PM Narrative 02/08/2023 6:54 PM CDT PROCEDURE: XR HAND RIGHT 3VW OR MORE, XR WRIST RIGHT 2VW, XR HAND LEFT 3VW OR MORE, XR FOOT RIGHT 3VW OR MORE, XR FOOT LEFT 3VW OR MORE, XR WRIST LEFT 2VW DATE/TIME OF EXAM: 02/08/2023 3:55 PM CLINICAL INFORMATION: None relevant/not provided if blank. Indication: M05.79: Rheumatoid arthritis involving multiple sites with positive rheumatoid factor (CMS/HCC) Additional History: COMPARISON: Right and left and, wrist, and foot x-rays dated 11/02/2021 FINDINGS: Right hand: No fracture or dislocation is present. The joint spaces are normal. No erosions are seen. Bone density is normal. The soft tissues are normal. Left hand: No fracture or dislocation is present. The joint spaces are normal. No erosions are seen. Bone density is normal. The soft tissues are normal. Right wrist: No fracture or dislocation is present. Minimal first carpometacarpal osteoarthritis. The other joint spaces are normal. No erosions are seen. Bone density is normal. The soft tissues are normal. Left wrist: No fracture or dislocation is present. Minimal first carpometacarpal osteoarthritis. The other joint spaces are normal. No erosions are seen. Bone density is normal. The soft tissues are normal. Right foot: No fracture or dislocation is present. The joint spaces are normal. No erosions are seen. Bone density is normal. The soft tissues are normal. Left foot: No fracture or dislocation is present. The joint spaces are normal. There is a defect in the medial cortex of the first metatarsal distal shaft located 11 mm proximal to the articular surface consistent with a nonmarginal erosion, unchanged. No other erosions are seen. Bone density is normal. The soft tissues are normal. Procedure Note Med Davis MD - 02/08/2023 PROCEDURE: XR HAND RIGHT 3VW OR MORE, XR WRIST RIGHT 2VW, XR HAND [id number] OR MORE, XR FOOT RIGHT 3VW OR MORE, XR FOOT LEFT 3VW OR MORE, XR WRISTLEFT 2VW DATE/TIME OF EXAM: 02/08/2023 3:55 PM CLINICAL INFORMATION: None relevant/not provided if blank. Indication: M05.79: Rheumatoid arthritis involving multiple sites with positive rheumatoid factor (CMS/HCC) Additional History: COMPARISON: Right and left and, wrist, and foot x-rays dated 11/02/2021 FINDINGS: Right hand: No fracture or dislocation is present. The joint spaces are normal. No erosions are seen. Bone density is normal. The soft tissues arenormal. Left hand: No fracture or dislocation is present. The joint spaces are normal. No erosions are seen. Bone density is normal. The soft tissues arenormal. Right wrist: No fracture or dislocation is present. Minimal first carpometacarpal osteoarthritis. The other joint spaces are normal. No erosions are seen. Bone density is normal. The soft tissues are normal. Left wrist: No fracture or dislocation is present. Minimal first carpometacarpal osteoarthritis. The other joint spaces are normal. No erosions are seen. Bone density is normal. The soft tissues are normal. Right foot: No fracture or dislocation is present. The joint spaces are normal. No erosions are seen. Bone density is normal. The soft tissues arenormal. Left foot: No fracture or dislocation is present. The joint spaces are normal.There is a defect in the medial cortex of the first metatarsal distal shaft located 11 mm proximal to the articular surface consistent with a nonmarginal erosion, unchanged. No other erosions are seen. Bonedensity is normal. The soft tissues are normal. IMPRESSION: 1. Right left hands: Normal. 2. Right and left wrists: Minimal first carpometacarpal osteoarthritis. 3. Right foot: Normal. 4. Left foot: A nonmarginal erosion in the first metatarsal distalshaft, unchanged. The joint spaces are normal. > Interpreting Provider: Med Davis MD on 02/08/2023 6:54 PM Giacomo Washburn MD DIAGNOSTIC IMAGING O RDERABLES * XR HAND LEFT 3VW OR MORE (02/08/2023 3:55 PM CDT) Only the most recent of3 resultswithin the time period is included. Anatomical Region Laterality Modality Wrist / Hand Radiographic Clementina ging 02/08/2023 6:48 PM CDT Impressions 02/08/2023 6:54 PM CDT IMPRESSION: 1. Right left hands: Normal. 2. Right and left wrists: Minimal first carpometacarpal osteoarthritis. 3. Right foot: Normal. 4. Left foot: A nonmarginal erosion in the first metatarsal distal shaft, unchanged. The joint spaces are normal. > Interpreting Provider: Med Davis MD on 02/08/2023 6:54 PM Narrative 02/08/2023 6:54 PM CDT PROCEDURE: XR HAND RIGHT 3VW OR MORE, XR WRIST RIGHT 2VW, XR HAND LEFT 3VW OR MORE, XR FOOT RIGHT 3VW OR MORE, XR FOOT LEFT 3VW OR MORE, XR WRIST LEFT 2VW DATE/TIME OF EXAM: 02/08/2023 3:55 PM CLINICAL INFORMATION: None relevant/not provided if blank. Indication: M05.79: Rheumatoid arthritis involving multiple sites with positive rheumatoid factor (CMS/HCC) Additional History: COMPARISON: Right and left and, wrist, and foot x-rays dated 11/02/2021 FINDINGS: Right hand: No fracture or dislocation is present. The joint spaces are normal. No erosions are seen. Bone density is normal. The soft tissues are normal. Left hand: No fracture or dislocation is present. The joint spaces are normal. No erosions are seen. Bone density is normal. The soft tissues are normal. Right wrist: No fracture or dislocation is present. Minimal first carpometacarpal osteoarthritis. The other joint spaces are normal. No erosions are seen. Bone density is normal. The soft tissues are normal. Left wrist: No fracture or dislocation is present. Minimal first carpometacarpal osteoarthritis. The other joint spaces are normal. No erosions are seen. Bone density is normal. The soft tissues are normal. Right foot: No fracture or dislocation is present. The joint spaces are normal. No erosions are seen. Bone density is normal. The soft tissues are normal. Left foot: No fracture or dislocation is present. The joint spaces are normal. There is a defect in the medial cortex of the first metatarsal distal shaft located 11 mm proximal to the articular surface consistent with a nonmarginal erosion, unchanged. No other erosions are seen. Bone density is normal. The soft tissues are normal. Procedure Note Med Davis MD - 02/08/2023 PROCEDURE: XR HAND RIGHT 3VW OR MORE, XR WRIST RIGHT 2VW, XR HAND [id number] OR MORE, XR FOOT RIGHT 3VW OR MORE, XR FOOT LEFT 3VW OR MORE, XR WRISTLEFT 2VW DATE/TIME OF EXAM: 02/08/2023 3:55 PM CLINICAL INFORMATION: None relevant/not provided if blank. Indication: M05.79: Rheumatoid arthritis involving multiple sites with positive rheumatoid factor ([facility]) Additional History: COMPARISON: Right and left and, wrist, and foot x-rays dated 11/02/2021 FINDINGS: Right hand: No fracture or dislocation is present. The joint spaces are normal. No erosions are seen. Bone density is normal. The soft tissues arenormal. Left hand: No fracture or dislocation is present. The joint spaces are normal. No erosions are seen. Bone density is normal. The soft tissues arenormal. Right wrist: No fracture or dislocation is present. Minimal first carpometacarpal osteoarthritis. The other joint spaces are normal. No erosions are seen. Bone density is normal. The soft tissues are normal. Left wrist: No fracture or dislocation is present. Minimal first carpometacarpal osteoarthritis. The other joint spaces are normal. No erosions are seen. Bone density is normal. The soft tissues are normal. Right foot: No fracture or dislocation is present. The joint spaces are normal. No erosions are seen. Bone density is normal. The soft tissues arenormal. Left foot: No fracture or dislocation is present. The joint spaces are normal.There is a defect in the medial cortex of the first metatarsal distal shaft located 11 mm proximal to the articular surface consistent with a nonmarginal erosion, unchanged. No other erosions are seen. Bonedensity is normal. The soft tissues are normal. IMPRESSION: 1. Right left hands: Normal. 2. Right and left wrists: Minimal first carpometacarpal osteoarthritis. 3. Right foot: Normal. 4. Left foot: A nonmarginal erosion in the first metatarsal distalshaft, unchanged. The joint spaces are normal. > Interpreting Provider: Med Davis MD on 02/08/2023 6:54 PM Giacomo Washburn MD DIAGNOSTIC IMAGING O RDERABLES * XR WRIST RIGHT 2VW (02/08/2023 3:55 PM CDT) Only the most recent of3 resultswithin the time period is included. Anatomical Region Laterality Modality Wrist / Hand Radiographic Clementina ging 02/08/2023 6:48 PM CDT Impressions 02/08/2023 6:54 PM CDT IMPRESSION: 1. Right left hands: Normal. 2. Right and left wrists: Minimal first carpometacarpal osteoarthritis. 3. Right foot: Normal. 4. Left foot: A nonmarginal erosion in the first metatarsal distal shaft, unchanged. The joint spaces are normal. > Interpreting Provider: Med Davis MD on 02/08/2023 6:54 PM Narrative 02/08/2023 6:54 PM CDT PROCEDURE: XR HAND RIGHT 3VW OR MORE, XR WRIST RIGHT 2VW, XR HAND LEFT 3VW OR MORE, XR FOOT RIGHT 3VW OR MORE, XR FOOT LEFT 3VW OR MORE, XR WRIST LEFT 2VW DATE/TIME OF EXAM: 02/08/2023 3:55 PM CLINICAL INFORMATION: None relevant/not provided if blank. Indication: M05.79: Rheumatoid arthritis involving multiple sites with positive rheumatoid factor ([facility]) Additional History: COMPARISON: Right and left and, wrist, and foot x-rays dated 11/02/2021 FINDINGS: Right hand: No fracture or dislocation is present. The joint spaces are normal. No erosions are seen. Bone density is normal. The soft tissues are normal. Left hand: No fracture or dislocation is present. The joint spaces are normal. No erosions are seen. Bone density is normal. The soft tissues are normal. Right wrist: No fracture or dislocation is present. Minimal first carpometacarpal osteoarthritis. The other joint spaces are normal. No erosions are seen. Bone density is normal. The soft tissues are normal. Left wrist: No fracture or dislocation is present. Minimal first carpometacarpal osteoarthritis. The other joint spaces are normal. No erosions are seen. Bone density is normal. The soft tissues are normal. Right foot: No fracture or dislocation is present. The joint spaces are normal. No erosions are seen. Bone density is normal. The soft tissues are normal. Left foot: No fracture or dislocation is present. The joint spaces are normal. There is a defect in the medial cortex of the first metatarsal distal shaft located 11 mm proximal to the articular surface consistent with a nonmarginal erosion, unchanged. No other erosions are seen. Bone density is normal. The soft tissues are normal. Procedure Note Med Davis MD - 02/08/2023 PROCEDURE: XR HAND RIGHT 3VW OR MORE, XR WRIST RIGHT 2VW, XR HAND [id number] OR MORE, XR FOOT RIGHT 3VW OR MORE, XR FOOT LEFT 3VW OR MORE, XR WRISTLEFT 2VW DATE/TIME OF EXAM: 02/08/2023 3:55 PM CLINICAL INFORMATION: None relevant/not provided if blank. Indication: M05.79: Rheumatoid arthritis involving multiple sites with positive rheumatoid factor (CMS/HCC) Additional History: COMPARISON: Right and left and, wrist, and foot x-rays dated 11/02/2021 FINDINGS: Right hand: No fracture or dislocation is present. The joint spaces are normal. No erosions are seen. Bone density is normal. The soft tissues arenormal. Left hand: No fracture or dislocation is present. The joint spaces are normal. No erosions are seen. Bone density is normal. The soft tissues arenormal. Right wrist: No fracture or dislocation is present. Minimal first carpometacarpal osteoarthritis. The other joint spaces are normal. No erosions are seen. Bone density is normal. The soft tissues are normal. Left wrist: No fracture or dislocation is present. Minimal first carpometacarpal osteoarthritis. The other joint spaces are normal. No erosions are seen. Bone density is normal. The soft tissues are normal. Right foot: No fracture or dislocation is present. The joint spaces are normal. No erosions are seen. Bone density is normal. The soft tissues arenormal. Left foot: No fracture or dislocation is present. The joint spaces are normal.There is a defect in the medial cortex of the first metatarsal distal shaft located 11 mm proximal to the articular surface consistent with a nonmarginal erosion, unchanged. No other erosions are seen. Bonedensity is normal. The soft tissues are normal. IMPRESSION: 1. Right left hands: Normal. 2. Right and left wrists: Minimal first carpometacarpal osteoarthritis. 3. Right foot: Normal. 4. Left foot: A nonmarginal erosion in the first metatarsal distalshaft, unchanged. The joint spaces are normal. > Interpreting Provider: Med Davis MD on 02/08/2023 6:54 PM Giacomo Washburn MD DIAGNOSTIC IMAGING O RDERABLES * XR WRIST LEFT 2VW (02/08/2023 3:55 PM CDT) Only the most recent of3 resultswithin the time period is included. Anatomical Region Laterality Modality Wrist / Hand Radiographic Clementina ging 02/08/2023 6:48 PM CDT Impressions 02/08/2023 6:54 PM CDT IMPRESSION: 1. Right left hands: Normal. 2. Right and left wrists: Minimal first carpometacarpal osteoarthritis. 3. Right foot: Normal. 4. Left foot: A nonmarginal erosion in the first metatarsal distal shaft, unchanged. The joint spaces are normal. > Interpreting Provider: Med Davis MD on 02/08/2023 6:54 PM Narrative 02/08/2023 6:54 PM CDT PROCEDURE: XR HAND RIGHT 3VW OR MORE, XR WRIST RIGHT 2VW, XR HAND LEFT 3VW OR MORE, XR FOOT RIGHT 3VW OR MORE, XR FOOT LEFT 3VW OR MORE, XR WRIST LEFT 2VW DATE/TIME OF EXAM: 02/08/2023 3:55 PM CLINICAL INFORMATION: None relevant/not provided if blank. Indication: M05.79: Rheumatoid arthritis involving multiple sites with positive rheumatoid factor (CMS/HCC) Additional History: COMPARISON: Right and left and, wrist, and foot x-rays dated 11/02/2021 FINDINGS: Right hand: No fracture or dislocation is present. The joint spaces are normal. No erosions are seen. Bone density is normal. The soft tissues are normal. Left hand: No fracture or dislocation is present. The joint spaces are normal. No erosions are seen. Bone density is normal. The soft tissues are normal. Right wrist: No fracture or dislocation is present. Minimal first carpometacarpal osteoarthritis. The other joint spaces are normal. No erosions are seen. Bone density is normal. The soft tissues are normal. Left wrist: No fracture or dislocation is present. Minimal first carpometacarpal osteoarthritis. The other joint spaces are normal. No erosions are seen. Bone density is normal. The soft tissues are normal. Right foot: No fracture or dislocation is present. The joint spaces are normal. No erosions are seen. Bone density is normal. The soft tissues are normal. Left foot: No fracture or dislocation is present. The joint spaces are normal. There is a defect in the medial cortex of the first metatarsal distal shaft located 11 mm proximal to the articular surface consistent with a nonmarginal erosion, unchanged. No other erosions are seen. Bone density is normal. The soft tissues are normal. Procedure Note Med Davis MD - 02/08/2023 PROCEDURE: XR HAND RIGHT 3VW OR MORE, XR WRIST RIGHT 2VW, XR HAND [id number] OR MORE, XR FOOT RIGHT 3VW OR MORE, XR FOOT LEFT 3VW OR MORE, XR WRISTLEFT 2VW DATE/TIME OF EXAM: 02/08/2023 3:55 PM CLINICAL INFORMATION: None relevant/not provided if blank. Indication: M05.79: Rheumatoid arthritis involving multiple sites with positive rheumatoid factor (CMS/HCC) Additional History: COMPARISON: Right and left and, wrist, and foot x-rays dated 11/02/2021 FINDINGS: Right hand: No fracture or dislocation is present. The joint spaces are normal. No erosions are seen. Bone density is normal. The soft tissues arenormal. Left hand: No fracture or dislocation is present. The joint spaces are normal. No erosions are seen. Bone density is normal. The soft tissues arenormal. Right wrist: No fracture or dislocation is present. Minimal first carpometacarpal osteoarthritis. The other joint spaces are normal. No erosions are seen. Bone density is normal. The soft tissues are normal. Left wrist: No fracture or dislocation is present. Minimal first carpometacarpal osteoarthritis. The other joint spaces are normal. No erosions are seen. Bone density is normal. The soft tissues are normal. Right foot: No fracture or dislocation is present. The joint spaces are normal. No erosions are seen. Bone density is normal. The soft tissues arenormal. Left foot: No fracture or dislocation is present. The joint spaces are normal.There is a defect in the medial cortex of the first metatarsal distal shaft located 11 mm proximal to the articular surface consistent with a nonmarginal erosion, unchanged. No other erosions are seen. Bonedensity is normal. The soft tissues are normal. IMPRESSION: 1. Right left hands: Normal. 2. Right and left wrists: Minimal first carpometacarpal osteoarthritis. 3. Right foot: Normal. 4. Left foot: A nonmarginal erosion in the first metatarsal distalshaft, unchanged. The joint spaces are normal. > Interpreting Provider: Med Davis MD on 02/08/2023 6:54 PM Giacomo Washburn MD DIAGNOSTIC IMAGING O RDERABLES * LAB RESULTS ORDER (12/15/2020) 12/15/2020 Narrative 12/15/2020 Ordered by an unspecified provider. Scanned Document LAB - THERAPEUTIC DR PAZ MONITORING ORDERABLES * QUANTIFERON-TB GOLD PLUS 1-TUBE (12/08/2020 8:02 AM CDT) [facility] QuantiFERON TB Gold Plus NEGATIVE NEGATIVE [facility] Comment: Negative test result. M. tuberculosis complex infection unlikely. NIL 0.01 IU/mL [facility] MITOGEN MINUS NIL RESULT 6.69 IU/mL [facility] TB1-NIL 0.09 IU/mL [facility] TB2-NIL 0.15 IU/mL [facility] Comment: The Nil tube value reflects the background interferon gamma immune response of the patient's blood sample. This value has been subtracted from the patient's displayed TB and Mitogen results. Lower than expected results with the Mitogen tube prevent false-negative Quantiferon readings by detecting a patient with a potential immune suppressive condition and/or suboptimal pre-analytical specimen handling. The TB1 Antigen tube is coated with the M. tuberculosis-specific antigens designed to elicit responses from TB antigen primed CD4+ helper T-lymphocytes. The TB2 Antigen tube is coated with the M. tuberculosis-specific antigens designed to elicit responses from TB antigen primed CD4+ helper and CD8+ cytotoxic T-lymphocytes. For additional information, please refer to https://education.GitCafe/faq/NQM030 (This link is being provided for informational/ educational purposes only.) REPORT COMMENT: FASTING:YES Test Performed at: [facility] [facility] [address] [place] [address] SHERIDAN RALPH DO,MPH 12/08/2020 8:02 AM CDT 12/08/2020 8:06 AM CDT Giacomo Washburn MD LAB - CHEMISTRY ORDChris [facility] Performing Organization Address [facility] Co de Phone Number [address] [address] * (ABNORMAL) RHEUMATOID FACTOR IGG/IGM/IGA AB (12/08/2020 8:02 AM CDT) Rheumatoid Factor IgG 11(H) <=6 U [facility] Rheumatoid Factor IgA 43(H) <=6 U [facility] Rheumatoid Factor IgM 100(H) <=6 U [facility] Comment: Test Performed at: [employer]/[address] DIANA PENA MD,PHD 12/08/2020 8:02 AM CDT 12/08/2020 8:06 AM CDT Giacomo Washburn MD LAB - SEROLOGY ORDER RONI Performing Organization Address [facility] Co de Phone Number [address] [address] * CULTURE URINE REFLEXED III (12/08/2020 8:02 AM CDT) Reflexive Urine Culture See Below [facility] Comment: NO CULTURE INDICATED Test Performed at: [facility] [employer] [address] EDSON SANDERSON MD 12/08/2020 8:02 AM CDT 12/08/2020 8:06 AM CDT Giacomo Washburn MD LAB - MICROBIOLOGY O RDERABLES Performing Organization Address [facility] Co de Phone Number [place] [phone] * URINALYSIS W/MICROSCOPIC REFLEX TO CULTURE (12/08/2020 8:02 AM CDT) Color UA YELLOW YELLOW [facility] Appearance CLEAR CLEAR [facility] Specific [place] UA 1.021 1.001 - 1.035 [facility] pH UA < OR = 5.0 5.0 - 8.0 [facility] Glucose UA NEGATIVE NEGATIVE [facility] Bilirubin UA NEGATIVE NEGATIVE [facility] Ketone UA NEGATIVE NEGATIVE [facility] Blood UA NEGATIVE NEGATIVE [facility] Protein UA NEGATIVE NEGATIVE [facility] Nitrite NEGATIVE NEGATIVE [facility] Leukocyte Esterase NEGATIVE NEGATIVE [facility] WBC UA NONE SEEN < OR = 5 /HPF [facility] RBC UA NONE SEEN < OR = 2 /HPF [facility] Epithelial Cell UA NONE SEEN < OR = 5 /HPF [facility] Bacteria UA NONE SEEN NONE SEEN /HPF [facility] Hyaline Casts NONE SEEN NONE SEEN /LPF [facility] Comment: Test Performed at: [facility] [address] EDSON SANDERSON MD 12/08/2020 8:02 AM CDT 12/08/2020 8:06 AM CDT Giacomo Washburn MD LAB - URINALYSIS ORD ERABLES Performing Organization Address [facility] de Phone Number [place] [phone] * EMERY (SM) ANTIBODY ERNIE (12/08/2020 8:02 AM CDT) SM Antibody <1.0 NEG <1.0 NEG AI [facility] Comment: Test Performed at: [facility] [address] [place] [address] SHERIDAN RALPH DO,MPH 12/08/2020 8:02 AM CDT 12/08/2020 8:06 AM CDT Giacomo Washburn MD LAB - CHEMISTRY ORDE RABLES Performing Organization Address [facility] Co de Phone Number [address] [address] * (ABNORMAL) RHEUMATOID FACTOR BLOOD QUANTITATIVE (12/08/2020 8:02 AM CDT) Pathologist [facility] Rheumatoid Factor 100(H) <14 IU/mL [facility] Comment: Test Performed at: [employer] [address] [place] [address] SHERIDAN RALPH DO,MPH 12/08/2020 8:02 AM CDT 12/08/2020 8:06 AM CDT Giacomo Washburn MD LAB - CHEMISTRY BRITTNEY MCWILLIAMS Performing Organization Address [facility] Co de Phone Number [facility] [address] [place] [address] * (ABNORMAL) FAYE BLOOD TITER (12/08/2020 8:02 AM CDT) [facility] FAYE 1:160(H) titer [facility] Comment: Reference Range <1:40 Negative 1:40-1:80 Low Antibody Level >1:80 Elevated Antibody Level FAYE Pattern Nuclear, Dense Fine Speckled(A ) [facility] Comment: Dense fine speckled pattern is seen in normal individuals and rarely associated with systemic lupus erythematosis (SLE), Sjogren's syndrome and systemic sclerosis. AC-2: Dense Fine Speckled International Consensus on FAYE Patterns (https://doi.org/10.1515/bwif-6428-8685) Test Performed at: [employer] [address] [place] [address] SHERIDAN RALPH DO,MPH 12/08/2020 8:02 AM CDT 12/08/2020 8:06 AM CDT Giacomo Washburn MD LAB - CHEMISTRY BRITTNEY MCWILLIAMS Performing Organization Address [facility] de Phone Number [facility] [address] [place] [address] * (ABNORMAL) FAYE BLOOD SCREEN W/REFLEX TITER (12/08/2020 8:02 AM CDT) [facility] FAYE Screen POSITIVE( A) NEGATIVE [facility] Comment: FAYE IFA is a first line screen for detecting the presence of up to approximately 150 autoantibodies in various autoimmune diseases. A positive FAYE IFA result is suggestive of autoimmune disease and reflexes to titer and pattern. Further laboratory testing may be considered if clinically indicated. For additional information, please refer to http://education.SHEEX/faq/KLR541 (This link is being provided for informational/ educational purposes only.) Test Performed at: [employer] [address] [address] SHERIDAN RALPH DO,MPH 12/08/2020 8:02 AM CDT 12/08/2020 8:06 AM CDT Giacomo Washburn MD LAB - CHEMISTRY BRITTNEY MCWILLIAMS Performing Organization Address [facility] [place] [address] * SS-B (SJOGREN'S) ANTIBODY (12/08/2020 8:02 AM CDT) Sjogren's Antibodies (SSB) <1.0 NEG <1.0 NEG AI [facility] Comment: Test Performed at: [employer] [place] [employer] [place] [address] SHERIDAN RALPH DO,MPH 12/08/2020 8:02 AM CDT 12/08/2020 8:06 AM CDT Giacomo Washburn MD LAB - CHEMISTRY BRITTNEY MCWILLIAMS Performing Organization Address [facility] Co de Phone Number [facility] [phone] [place], [place] [phone] * SS-A (SJOGREN'S) ANTIBODY (12/08/2020 8:02 AM CDT) Sjogren's Antibodies (SSA) <1.0 NEG <1.0 NEG AI [facility] Comment: Test Performed at: [employer] [place] [employer] [place] [address] SHERIDAN RALPH DO,MPH 12/08/2020 8:02 AM CDT 12/08/2020 8:06 AM CDT Giacomo Washburn MD LAB - CHEMISTRY BRITTNEY MCWILLIAMS Performing Organization Address [facility] Co de Phone Number [facility] [phone] [place] [address] * DNA ANTIBODY DOUBLE STRANDED (12/08/2020 8:02 AM CDT) dsDNA Antibody <1 IU/mL [facility] Comment: IU/mL Interpretation < or = 4 Negative 5-9 Indeterminate > or = 10 Positive Test Performed at: [employer] [address] [employer] [place] [address] SHERIDAN RALPH DO,MPH 12/08/2020 8:02 AM CDT 12/08/2020 8:06 AM CDT Giacomo Washburn MD LAB - HEMATOLOGY ORD ERABLES Performing Organization Address [facility] Co de Phone Number [facility] [address] [place] [address] * (ABNORMAL) CYCLIC CITRULLINATED PEPTIDE(CCP) AB IGG (12/08/2020 8:02 AM CDT) Pathologist [facility] Cyclic Citrullinated Peptide Antibody IgG >250(H) UNITS [facility] Comment: Reference Range Negative: <20 Weak Positive: 20-39 Moderate Positive: 40-59 Strong Positive: >59 Test Performed at: [email or web address] [address] [address] [facility] [address] SHERIDAN RALPH DO,MPH 12/08/2020 8:02 AM CDT 12/08/2020 8:06 AM CDT Giacomo Washburn MD LAB - CHEMISTRY ORDE RABLES Performing Organization Address [facility] Co de Phone Number [facility] [address] [place] [address] * COMPLEMENT C4 (12/08/2020 8:02 AM CDT) Pathologist [facility] Complement C4 32 15 - 57 mg/dL [facility] Comment: Test Performed at: [employer] [address] [employer] [address] SHERIDAN RALPH DO,MPH 12/08/2020 8:02 AM CDT 12/08/2020 8:06 AM CDT Giacomo Washburn MD LAB - SEROLOGY ORDER RONI Performing Organization Address [facility] Co de Phone Number [place] [phone] * PROTEIN CREATININE RATIO URINE RANDOM PNL (12/08/2020 8:02 AM CDT) Creatinine Urine 127 20 - 275 mg/dL [facility] Protein/Creatini ne Ratio 94 21 - 161 mg/g creat [facility] Protein/Creatini ne Ratio 0.094 0.021 - 0.161 mg/mg creat [facility] Protein Random Urine 12 5 - 24 mg/dL [facility] Comment: Test Performed at: [employer] [address] SHERIDAN RALPH DO,MPH 12/08/2020 8:02 AM CDT 12/08/2020 8:06 AM CDT Giacomo Washburn MD LAB - URINE CHEMISTR Y ORDERABLES Performing Organization Address [facility] [place] [address] * HEPATITIS B SURFACE ANTIBODY (12/08/2020 8:02 AM CDT) Hepatitis B Virus Surface Antibody NON-REACTI VE NON-REACT NITHYA [facility] Comment: Test Performed at: [employer] [address] SHERIDAN RALPH DO,MPH 12/08/2020 8:02 AM CDT 12/08/2020 8:06 AM CDT Giacomo Washburn MD LAB - CHEMISTRY ORDE RABLES Performing Organization Address [facility] Co de Phone Number [place] [phone] * HEPATITIS B CORE ANTIBODY (12/08/2020 8:02 AM CDT) Hepatitis B Core Virus Antibody Total NON-REACTI VE NON-REACT NITHYA [facility] Comment: Test Performed at: [employer] [address] SHERIDAN RALPH DO,MPH 12/08/2020 8:02 AM CDT 12/08/2020 8:06 AM CDT Giacomo Washburn MD LAB - CHEMISTRY BRITTNEY MCWILLIAMS Performing Organization Address [facility] Co de Phone Number [facility] [phone] [place], [place] [phone] * HEPATITIS B SURFACE ANTIGEN W RFLX CONFIRMATION (12/08/2020 8:02 AM CDT) Pathologist [facility] Hepatitis B Virus Surface Antigen NON-REACT NITHYA NON-REACT NITHYA [facility] Comment: Test Performed at: [employer], [place] [employer] [place] [address] SHERIDAN RALPH DO,MPH Confirmation [facility] Comment: Test Performed at: [employer] [place] [employer] [place] [address] SHERIDAN RALPH DO,MPH 12/08/2020 8:02 AM CDT 12/08/2020 8:06 AM CDT iGacomo Washburn MD LAB - CHEMISTRY BRITTNEY MCWILLIAMS Performing Organization Address [facility] Co de Phone Number [facility] [address] [place] [address] * T4 FREE (12/08/2020 8:02 AM CDT) Pathologist [facility] T4 Free 1.2 0.8 - 1.8 ng/dL [facility] Comment: Test Performed at: [employer] [place] [employer] [place] [address] SHERIDAN RALPH DO,MPH 12/08/2020 8:02 AM CDT 12/08/2020 8:06 AM CDT Giacomo Washburn MD LAB - CHEMISTRY BRITTNEY MCWILLIAMS Performing Organization Address [facility] Co de Phone Number [facility] [address] [place] [address] * COMPLEMENT C3 (12/08/2020 8:02 AM CDT) [facility] Complement C3 170 83 - 193 mg/dL [facility] Comment: Test Performed at: [employer] [place] [employer] [place] [address] SHERIDAN RALPH DO,MPH 12/08/2020 8:02 AM CDT 12/08/2020 8:06 AM CDT Giacomo Washburn MD LAB - CHEMISTRY BRITTNEY MCWILLIAMS [facility] [address] [place] [address] Care Teams Fisher Quahog Relationship Specialty Start Date End Date Ly Wilson [facility] [place] [address] PCP - General 08/20/23
--- OUTSIDE RECORDS SUMMARY | 2024-06-09 17:55 | XMS_ITS | Encounter Summary ---
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; 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 Social History Tobacco Use Types Packs/Day Years Used Date Smoking Tobacco: Never Smokeless Tobacco: Never Alcohol Use Standard Drinks/Week Comments Not Currently 0 (1 standard drink = 0.6 oz pur e alcohol) PHQ-2 Answer Date Recorded Patient Health Questionnaire-2 Score 0 08/20/2023 Sex and Gender Information Value Date Recorded Sex Assigned at Not on file Gender Identity Not on file Sexual Orientation Not on file documented as of this encounter Plan of Treatment Upcoming Encounters Date Type Department Care Team (Late st Contact Info) Description 08/04/2024 2:00 PM CDT Office Visit [facility] - Rheumatology [address] [place] [phone] Giacomo Washburn MD [address] [place] [phone] documented as of this encounter Procedures Procedure Name Priority Date/Time Associated Diagnosis Comments CBC W AUTO DIFFERENTIAL Routine 05/30/2024 8:10 AM BEAD FILLER Rheumatoid arthritis involving multiple sites with positive rheumatoid factor (HCC) 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 COMPREHENSIVE METABOLIC PANEL Routine 05/30/2024 8:10 AM BEAD FILLER Rheumatoid arthritis involving multiple sites with positive rheumatoid factor (HCC) 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 senior living current use of immunosuppressive drug documented in this encounter Results * (ABNORMAL) COMPREHENSIVE METABOLIC PANEL (05/30/2024 8:10 AM BEAD FILLER) Glucose 104(H) 65 - 99 mg/dL [facility] [...] 29 U/L [facility] Comment: Test Performed at: [employer] [address] EDSON SANDERSON MD Blood BLOOD SPECIMEN / Unknown 05/30/2024 8:10 AM BEAD FILLER 05/30/2024 8:11 AM BEAD FILLER Giacomo Washburn MD LAB - CHEMISTRY BRITTNEY MCWILLIAMS [place] [phone] [place] [address] * (ABNORMAL) CBC WITH DIFFERENTIAL (05/30/2024 8:10 AM BEAD FILLER) White Blood Cell Count 10.4 3.8 - [...] Comment: REPORT COMMENT: FASTING:YES Test Performed at: [facility] [id number] [place] [address] EDSON SANDERSON MD Blasts [facility] nRBC [facility] Comments [facility] Comment: REPORT COMMENT: FASTING:YES Test Performed at: [facility] [place] [address] [place] [address] EDSON SANDERSON MD Blood BLOOD SPECIMEN / Unknown 05/30/2024 8:10 AM BEAD FILLER 05/30/2024 8:11 AM BEAD FILLER Giacomo Washburn MD LAB - HEMATOLOGY ORD ERABLES [place] [address] [place] [address] documented in this encounter Visit Diagnoses Diagnosis Rheumatoid arthritis involving multiple sites with positive rheumatoid factor (HCC) 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 Encounter for therapeutic drug monitoring 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
--- OUTSIDE RECORDS SUMMARY | 2024-06-09 17:55 | XMS_ITS | Data Portability ---
Author Organization [facility], Main Office Address [address] [place] [address] Care Team Providers Care Market Research Consultant Name Role Phone SUJATA SY Primary Care Provider [phone] SUJATA SY Referring Provider [phone] Assessment Encounter Date Assessment Date Assessment LastModified by Organization Details LastModified Time 06/26/2022 06/26/2022 Cscope- 08/2021-WNL- Flores- repeat 08/2031 WWE- INDUSTRIAL RELATIONS SPECIALIST- Chema Mammogram- INDUSTRIAL RELATIONS SPECIALIST manages Call office if worse, ER if life threatening illness RTC 3 months She voices understanding of plan and agrees [email or web address] Not available 06/22/2022 18:49:59 10/02/2022 10/02/2022 Cscope- 08/2021-WNL- Flores- repeat 08/2031 WWE- INDUSTRIAL RELATIONS SPECIALIST- Bear Mammogram- INDUSTRIAL RELATIONS SPECIALIST manages Call office if worse, ER if life threatening illness RTC 3 months She voices understanding of plan and agrees [email or web address] Not available 10/02/2022 12:56:10 01/01/2023 01/01/2023 Cscope- 08/2021-WNL- Flores- repeat 08/2031 WWE- INDUSTRIAL RELATIONS SPECIALIST- Bear Mammogram- INDUSTRIAL RELATIONS SPECIALIST manages Call office if worse, ER if life threatening illness RTC 6 months and prn She voices understanding of plan and agrees [email or web address] Not available 01/01/2023 14:54:04 07/02/2023 07/02/2023 annual wellness Not availabl e 10/09/2023 14:29:53 Plan of Treatment Reminders Order Date Submit Date Provider Last Modified By Organization Details Last Modified Time Details Appointments Any 15 2024 01:30P M 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 [facility], [address] , [place], [address], 01/07/2024 07:39:16 TSH + free T4, serum 2023 024 [facility], [address] , [place], [address], 01/07/2024 07:39:16 CBC w/ auto diff 2023 024 [facility], [address] , [place], [address], 01/07/2024 07:39:16 CMP, serum or plasma 2023 024 [facility], [address] , [place], [address], 01/07/2024 07:39:16 lipid panel, serum 2023 024 [employer], [address] , [place], [address], 01/07/2024 07:39:17 iron + total iron-bind ing capacity (TIBC), serum 2022 023 [email or web address], [address] , [place], [address], 10/18/2022 09:46:46 vitamin B12 + folate, serum or blood 2022 023 [email or web address] [facility], [address] , [place], [address], 10/18/2022 09:46:46 vitamin D, 25-hydrox y, total, serum 2022 023 [email or web address], [address], [place], [address], 10/18/2022 09:46:47 TSH + free T4, serum 2022 023 [facility], [address], [place], [address], 10/13/2022 11:32:50 HbA1c (hemoglob in A1c), blood 2022 023 [facility], [address] [facility], [place], [address], 10/13/2022 11:32:50 lipid panel, serum 2022 023 [facility], [address] , [place], [address], 10/13/2022 11:32:50 Referral endocrino logy referral - Please call patient to schedule. 2023 024 brandon Cooper MD, [address],, [address], [address], 04/07/2024 07:43:05 Procedures None recorded. Surgeries None recorded. Imaging bone density 2023 024 [facility] ([facility]), [address] [place], [address], 07/20/2023 11:47:54 Medication Orders mupirocin 2 % topical ointment 2023 024 APULIA ST[id number], [address] [facility], [place], [place], [id number], 01/01/2024 15:13:00 metoprolo l succinate ER 50 mg tablet,ex tended release 24 hr 2023 024 [facility][id number], [address], [place], [place], [id number], 07/02/2023 14:48:52 omeprazol e 40 mg capsule,d elayed release [email or web address] [id number], [address], [place], [place], [id number], 07/02/2023 14:24:10 Mounjaro 7.5 mg/0.5 mL subcutane ous pen injector 2022 023 [email or web address] [facility], [address] [place] [address], [address], 01/01/2023 12:17:29 Patient TargetsNo targets recorded. Patient Instructions Encounter Date Encounter Id Patient Instructions Last Modified By Organization Details Last Modified Time 07/02/2023 [id number] Follow up in 6 months Obtain labs Bone density scan Metoprolol prescription sent to pharmacy Not available 07/02/2023 14:48:39 01/01/2024 [id number] Follow up in 6 months Obtain lab Tests: Referral: Endrocrine-Hashim sue's Recommend: Influenza vaccine Tetanus vaccine Not available 01/01/2024 15:09:14 Reason for Referral Endocrinology Referral for H ashimoto thyroiditis Please call patient to schedule. Referring Physician: Ly Wilson, Internal Medicine, Encounter Date: 01/01/2024 Results Created Date Observation Date Name Description Value Unit Range Abnormal Flag Note LastModifiedBy Organization Detail LastModifiedTime 02/08/20 23 02/07/2023 MAMMO , scree navin, digit al, bilat eral No observ ation record ed. [email or web address] [place] [address] [address], [place], [address], 02/12/2023 14:24:54 07/19/19 24 07/18/2023 DEXA No observ ation record ed. [facility] [address] [facility] [address], [place], [address], 07/21/2023 14:55:08 07/20/19 24 07/18/2023 bone densi ty No observ ation record ed. [email or web address] [facility] [address] [facility] [address], [place], [address], 07/25/2023 17:26:54 02/14/2002/13/2024 US, echoc ardio gram No observ ation record ed. [address] [facility] [address], [place], [address], 02/14/2024 14:13:59 02/14/2002/13/2024 imagi ng/di agnos tic resul t No observ ation record ed. [facility] [address], [place], [address], 02/14/2024 09:05:00 02/14/2002/13/2024 US, echoc ardio gram No observ ation record ed. [address] [facility] [address] , [place], [address], 02/14/2024 09:23:41 02/14/2002/13/2024 US, echoc ardio gram, trans thora cic, compl ete, w/ color flow No observ ation record ed. [email or web address] Not Available 2023 09:48:10 Result Notes None recorded. Problems Name Problem SNOMED Code Status Onset Date Resolution Date Notes Provider Name and Address Organization Details Recorded Time Urticaria 150678448 Active Not Available [facility] 3 14:58:38 Backache 357605182 Active Not Available [facility] 3 14:58:38 Esperanza thyroiditi s 20191007 Active 2021 Ly Wilson APRN [address], [address], [place], [address] , [employer] 4 13:02:26 Low back pain 671925792 Active 2021 Not Available [facility] 3 14:58:38 Low back pain 463509863 Completed 201708/22/2017 Not Available [facility] 3 14:58:38 Chest pain 43495956 Completed Not Available [facility] 3 14:58:38 Obesity 261195210 Active Not Available [facility] 3 14:58:38 Upper respirator y infection 82148496 Completed Ly Wilson APRN [address], [address], [place], [address] , [employer] 5 16:20:01 Hyperlipid emia 52507157 Active Ly Wilson APRN [address], [address], [place], [address] , [employer] 4 13:02:44 Essential hypertensi on 12994560 Active Not Available [facility] 3 14:58:38 Osteoporos is 18509278 Active 2022 Ly Wilson APRN [address], [address], [place], [address] , [employer] 4 13:02:48 Hyperglyce dimas 68419787 Active 2019 Ly Wilson APRN [address], [address], [place], [address] , [employer] 4 13:02:40 Skin lesion 69896180 Active 2022 Not Available [facility] 3 14:58:39 Prediabete s 210837228 Active 2022 Ly Wilson APRN [address], [address], [place], [address] , [employer] 4 14:31:43 Rheumatoid arthritis 52732492 Active 2022 Ly Wilson APRN [address], [address], [place], [address] , [facility] 4 13:02:57 Recurrent acute otitis media 619026101 Active 2022 JERAMIE Sanchez [address], [address], [place], [address] , [place] [facility] 3 18:49:22 Hemorrhoid s 15928443 Active 2022 Ly Wilson APRN [address], [address], [place], [address] , [facility] 4 13:02:33 Loss of hair 726005702 Active 2022 JERAMIE Sanchez [address], [place], [address] , [facility] 3 13:04:55 Burning sensation of mouth Active 2022 Nikole coffey, [place] [facility] 3 09:11:13 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 2022 JERAMIE Sanchez [address], [place], [address] , [facility] 3 12:51:10 Serum iron above reference range 007175303 Active 2022 JERAMIE Sanchez [address], [place], [address] , [facility] 3 14:54:23 Acute conjunctiv itis 37243627 Active 2022 Nikole coffey, [place] [facility] 3 15:52:46 Acute sinusitis 76777877 Active 2022 Nikole coffey, [place] [facility] 3 10:53:39 Vitamin D deficiency 05797950 Active 2023 Ly Wilson APRN [address], [address], [place], [address] , [employer] 4 13:57:38 Nasal infection 200824696 Active 2023 Ly Wilson APRN [address], [place], [address] , [employer] 4 14:59:23 Upper respirator y infection 19654997 Active 2024 Ly Wilson APRN [address], [place], [address] , [facility] 5 16:20:01 Problem Notes None recorded. Procedures Surgical History Date Name Laterality Status Provider Name and Address Organization Details Recorded Time Tubal Ligation completed Not Available [facility] 06/14/2022 14:56:01 Ablation completed Not Available [facility] 14:56:01 dilation and curettage completed Not Available [facility] 06/14/2022 14:56:01 cholecystectomy completed Not Available [facility] 06/14/2022 14:56:01 Imaging Results Imaging Date Name Status LastModified by Organization Details LastModified Time 02/07/2023 MAMMO, screening, digital, bilateral completed [address] [place] [address], [address], 02/12/2023 14:24:54 07/18/2023 DEXA completed [address] [place] [address], [address], 07/21/2023 14:55:08 07/18/2023 bone density completed [email or web address] [address], [address], 07/25/2023 17:26:54 02/13/2024 US, echocardiogram completed [address] [facility] [address], [place], [address], 02/14/2024 14:13:59 02/13/2024 imaging/diagnostic result active [facility] [address], [place], [address], 02/14/2024 09:05:00 02/13/2024 US, echocardiogram completed [facility] [address], [place], [address], 02/14/2024 09:23:41 02/13/2024 US, echocardiogram, transthoracic, complete, w/ color flow completed [email or web address] Information not available 02/18/2024 09:48:10 Procedure Notes None recorded. Medical Equipment None Reported. Allergies Allergen ID Allergen Name Allergen Category Reaction Reaction Severity Criticality Documentation Date Start Date Code Code System Note Provider Name and Address Organization Details Recorded Time 01450 tetanus immune globulin, human medicatio n other Not available Not available 06/14/2022 08496 RxNorm Swell ing SOB Not Available [facility] 3 15:02:06 08819 Substance with sulfonami de structure and antibacte rial mechanism of action (substanc e) medicatio n rash Not available Not available 06/14/2022 29793 8003 SNOMED Not Available [facility] 3 15:02:06 87028 Augmentin medicatio n nausea Not available Not available 06/14/2022 42877 2 RxNorm Not Available [facility] 3 15:02:06 Medications Name Sig Start Date Stop Date Status Note LastModified by Organization Details LastModified Time amoxicillin 500 mg capsule 05/23 completed Not Available Not Available Not Available nystatin 100,000 unit/mL oral suspension SHAKE LIQUID AND TAKE 5 ML BY MOUTH FOUR TIMES DAILY 01/01 completed Not Available Not Available Not Available doxycycline hyclate 100 mg capsule TAKE 1 CAPSULE BY MOUTH TWICE DAILY active Not Available Not Available No t Available clindamycin HCl 300 mg capsule TAKE 1 CAPSULE BY MOUTH THREE TIMES DAILY 07/01 completed Not Available Not Available Not Available BD Luer-Jr Syringe 3 mL 25 x 5/8 USE ONE SYRINGE WITH METHOTREX ATE INJECTION . 06/26 completed Not Available Not Available Not Available azithromyci n 250 mg tablet TAKE 2 TABLETS (500 MG) BY ORAL ROUTE ONCE DAILY FOR 1 DAY THEN 1 TABLET (250 MG) BY ORAL ROUTE ONCE DAILY FOR 4 DAYS active Not Available Not Available No t Available fluconazole 150 mg tablet active Not Available Not Available Not Available benzonatate 200 mg capsule TAKE 1 CAPSULE BY MOUTH THREE TIMES DAILY NEEDED FOR COUGH 07/01 completed Not Available Not Available Not Available metoprolol succinate ER 50 mg tablet,exte nded release 24 hr TAKE 1 TABLET BY MOUTH EVERY DAY active Not Available Not Available No t Available valacyclovi r 1 gram tablet TAKE 1 TABLET BY MOUTH TWICE DAILY 01/01 completed Not Available Not Available Not Available prednisone 20 mg tablet TAKE 3 TABLETS BY MOUTH ONCE DAILY FOR 5 DAYS 08/31 completed Not Available Not Available Not Available prednisone 5 mg tablet TAKE 1 TABLET BY MOUTH DAILY NEEDED FOR ARTHRITIS WHILE HOLDING METHOTREX ATRE FOR RHEUMATHO ID ARTHRITIS active Not Available Not Available No t Available sumatriptan 50 mg tablet active Not Available Not Available Not Available topiramate 25 mg tablet TAKE 1 TABLET BY MOUTH EVERY EVENING AT DINNER active Not Available Not Available No t Available metronidazo le 500 mg tablet active Not Available Not Available Not Available phentermine 37.5 mg tablet TAKE 1 TABLET BY MOUTH EVERY DAY active Not Available Not Available No t Available acetaminoph en 300 mg-codeine 30 mg tablet 05/23 completed Not Available Not Available Not Available ciprofloxac in 250 mg tablet TAKE 1 TABLET BY MOUTH TWICE DAILY 10/20 completed Not Available Not Available Not Available methotrexat e sodium 25 mg/mL injection solution PLEASE SEE ATTACHED FOR DETAILED DIRECTION S 06/26 completed Not Available Not Available Not Available omeprazole 40 mg capsule,del ayed release TAKE 1 CAPSULE BY MOUTH EVERY DAY IN THE MORNING 07/01 completed Not Available Not Available Not Available leflunomide 20 mg tablet TAKE 1 TABLET BY MOUTH DAILY active Not Available Not Available No t Available hydrocortis one 2.5 % topical cream with perineal applicator APPLY A THIN LAYER TO THE AFFECTED AREA(S) BY TOPICAL ROUTE 2-4 TIMES DAILY NEEDED 02/27 completed Not Available Not Available Not Available methotrexat e sodium 2.5 mg tablet TAKE 7 (SEVEN) TABLETS BY MOUTH EVERY 7 DAYS 07/11 completed Not Available Not Available Not Available benzonatate 100 mg capsule Take 2 capsules 3 times a day by oral route for 5 days. active Not Available Not Available No t Available hydrocodone 7.5 mg-acetamin ophen 325 mg tablet TAKE 1 TABLET BY MOUTH EVERY 6 HOURS NEEDED FOR PAIN CONTROL 07/11 completed Not Available Not Available Not Available erythromyci n 5 mg/gram (0.5 %) eye ointment APPLY 1 CM RIBBON TO LOWER EYELID OF AFFECTED EYES FOUR TIMES DAILY FOR 7 DAYS 06/26 completed Not Available Not Available Not Available gabapentin 300 mg capsule 07/01 completed Not Available Not Available Not Available folic acid 1 mg tablet TAKE 1 TABLET BY MOUTH DAILY active Not Available Not Available No t Available mupirocin 2 % topical ointment APPLY SMALL AMOUNT TOPICALLY TO THE AFFECTED AREA THREE TIMES DAILY active Not Available Not Available No t Available metoprolol succinate ER 25 mg tablet,exte nded release 24 hr TAKE 1 TABLET BY MOUTH TWICE DAILY 07/01 completed Not Available Not Available Not Available ergocalcife rol (vitamin D2) 1,250 mcg (50,000 unit) capsule TAKE 1 CAPSULE BY MOUTH ONE TIME PER WEEK 12/31 completed Not Available Not Available Not Available levofloxaci n 500 mg tablet Take 1 tablet every 24 hours by oral route for 7 days. 06/20 completed Not Available Not Available Not Available methylpredn isolone 4 mg tablets in a dose pack FOLLOW PACKAGE DIRECTION S active Not Available Not Available No t Available albuterol sulfate HFA 90 mcg/actuati on aerosol inhaler INHALE 2 PUFFS BY MOUTH EVERY 4 HOURS DIRECTED FOR SHORTNESS OF BREATH active Not Available Not Available No t Available hydroxyzine HCl 10 mg tablet Take 1 tablet 3 times a day by oral route as needed. active Not Available Not Available No t Available naproxen 500 mg tablet TAKE 1 TABLET BY MOUTH TWICE A DAY 10/20 completed Not Available Not Available Not Available neomycin-po lymyxin-hyd rocort 3.5 mg-10,000 unit/mL-1 % ear drops,susp SHAKE LIQUID AND INSTILL 2 DROPS IN BOTH EARS FOUR TIMES DAILY 07/01 completed Not Available Not Available Not Available metaxalone 800 mg tablet TAKE 1 TABLET BY MOUTH THREE TIMES DAILY NEEDED active Not Available Not Available No t Available cyclobenzap rine 5 mg tablet Take 1 tablet 3 times a day by oral route. active Not Available Not Available No t Available ciprofloxac in 0.3 %-dexametha sone 0.1 % ear drops,suspe nsion INSTILL 4 DROPS INTO THE AFFECTED EAR(S) TWICE A DAY FOR 7 DAYS 07/11 completed Not Available Not Available Not Available nitrofurant oin monohydrate /macrocryst als 100 mg capsule TAKE 1 CAPSULE BY MOUTH TWICE A DAY FOR 5 DAYS active Not Available Not Available No t Available BD Insulin Syringe Ultra-Fine 1 mL 30 gauge x 1/2 USE 1 EACH EVERY 7 DAYS FOR WEEKLY METHOTREX ATE SUBCUTANE OUS INJECTION . 06/26 completed Not Available Not Available Not Available Rasuvo (PF) 17.5 mg/0.35 mL subcutaneou s auto-inject or active Not Available Not Available Not Available Rasuvo (PF) 25 mg/0.5 mL subcutaneou s auto-inject or active Not Available Not Available Not Available Flonase Allergy Relief 50 mcg/actuati on nasal spray,suspe nsion Hollister 2 sprays every day by intranasa l route. 05/08 completed Not Available Not Available Not Available Enbrel Mini 50 mg/mL (1 mL) subcutaneou s cartridge active Not Available Not Available Not Available Paxlovid 300 mg (150 mg x 2)-100 mg tablets in a dose pack FOLLOW PACKAGE DIRECTION S 07/01 completed Not Available Not Available Not Available Mounjaro 7.5 mg/0.5 mL subcutaneou s pen injector Inject 7.5 mg every week by subcutane ous route. 01/01 completed Not Available Not Available Not Available Mounjaro 5 mg/0.5 mL subcutaneou s pen injector Inject 5 mg every week by subcutane ous route. 10/02 completed Not Available Not Available Not Available Mounjaro 2.5 mg/0.5 mL subcutaneou s pen injector Inject 0.5 mL every week by subcutane ous route. 12/28 completed Not Available Not Available Not Available Vitals Date Recorded Body height Body mass index (BMI) Body weight Body temperature Heart rate Oxygen saturation Oxygen saturation in Arterial blood by Pulse oximetry Systolic blood pressure Diastolic blood pressure Provider Name and Address Organization Details Last Updated DateTime 3 180.34 cm 30.1 kg/m2 17521.9 5 g 98 [degF] 78 /min 97 % 97 % 124 mm[Hg] 78 mm[Hg] Arlette Lux NIK [facility] [employer] [facility] 3 12:26:47 Date Recorded Body height Body mass index (BMI) Body weight Body temperature Heart rate Oxygen saturation Oxygen saturation in Arterial blood by Pulse oximetry Systolic blood pressure Diastolic blood pressure Provider Name and Address Organization Details Last Updated DateTime 3 180.34 cm 29.3 kg/m2 51315.4 g 98.1 [degF] 70 /min 98 % 98 % 126 mm[Hg] 72 mm[Hg] Arlette Lux MA [facility] [employer] [facility] 3 12:32:39 Date Recorded Body height Body mass index (BMI) Body weight Body temperature Heart rate Oxygen saturation Oxygen saturation in Arterial blood by Pulse oximetry Systolic blood pressure Diastolic blood pressure Provider Name and Address Organization Details Last Updated DateTime 3 180.34 cm 31 kg/m2 801710. 51 g 97.9 [degF] 60 /min 97 % 97 % 124 mm[Hg] 78 mm[Hg] Arlette Lux MA [facility] [employer] [facility] 3 12:21:26 Date Recorded Body height Body mass index (BMI) Body weight Body temperature Heart rate Oxygen saturation Oxygen saturation in Arterial blood by Pulse oximetry Systolic blood pressure Diastolic blood pressure Provider Name and Address Organization Details Last Updated DateTime 4 175.26 cm 33.2 kg/m2 804510. 28 g 97.1 [degF] 69 /min 98 % 98 % 122 mm[Hg] 74 mm[Hg] Keenan Bender CMA [facility] [employer] [facility] 4 14:20:24 Date Recorded Body height Body mass index (BMI) Body weight Body temperature Heart rate Oxygen saturation Oxygen saturation in Arterial blood by Pulse oximetry Pain severity - 0-10 verbal numeric rating [Score] - Reported Systolic blood pressure Diastolic blood pressure Provider Name and Address Organization Details Last Updated DateTime 4 175.26 cm 35.9 kg/m2 014179. 95 g 97.4 [degF] 91 /min 97 % 97 % 0 118 mm[Hg] 88 mm[Hg] Nell Snyder [place] [facility] [employer] 4 14:21:53 Social History Question Answer Notes LastModified by Organizat ion Details LastModified Time Tobacco Smoking Status Never Smoker Not Available [facility] 06/14/2022 14:55:10 What Is Your Level Of Alcohol Consumption? Occasional [id number] Information not available 06/14/2022 What Is Your Level Of Caffeine Consumption? Occasional [id number] Information not available 06/14/2022 How Much Tobacco Do You Chew? None [id number] Information not available 06/14/2022 In The 14 Days Before Symptom Onset, Have You Had Close Contact With A Laboratory-confir med COVID-19 While That Case Was Ill? No [id number] Information not available 06/14/2022 In The 14 Days Before Symptom Onset, Have You Had Close Contact With A Person Who Is Under Investigation For COVID-19 While That Person Was Ill? No [id number] Information not available 06/14/2022 What Type Of Diet Are You Following? REGULAR [id number] Information not available 06/14/2022 Which Illicit Or Recreational Drugs Have You Used? None [id number] Information not available 06/14/2022 What Is The Highest Grade Or Level Of School You Have Completed Or The Highest Degree You Have Received? 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 No [id number].01402 [id number] Information not available 06/14/2022 What Is The Fluoride Status Of Your Home? Unknown [id number] Information not available 06/14/2022 Are There Any Guns Present In Your Home? Yes [id number] Information not available 06/14/2022 Do You Use Insect Repellent Routinely? No [id number].[id number] Information not available 06/14/2022 Where Do You Live? [place] [id number] Information not available 06/14/2022 What Was The Date Of Your Most Recent Tobacco Screening? 01/01/2024 [email or web address] Information not available 01/01/2024 Do You Have Any Pets? Yes MIGRATION.69394 [id number] Information not available 06/14/2022 Do You Use Your Seat Belt Or Car Seat Routinely? Yes MIGRATION.00190 [id number] Information not available 06/14/2022 Do You Have Smoke And Carbon Monoxide Detectors In Your Home? Yes MIGRATION.77863 [id number] Information not available 06/14/2022 Are You Passively Exposed To Smoke? No MIGRATION.74523 [id number] Information not available 06/14/2022 Are There Any Smokers In Your House? No MIGRATION.73362 [id number] Information not available 06/14/2022 Do You Feel Stressed (tense, Restless, Nervous, Or Anxious, Or Unable To Sleep At Night)? [id number] MIGRATION.25304 79450 Information not available 06/14/2022 Do You Use Any Illicit Or Recreational Drugs? No MIGRATION.32137 30587 Information not available 06/14/2022 Do You Use Sunscreen Routinely? Yes MIGRATION.11373 73593 Information not available 06/14/2022 Have You Recently Traveled Abroad? No MIGRATION.33161 94207 Information not available 06/14/2022 Do You Have Any Dietary Restrictions? No MIGRATION.03460 70801 Information not available 06/14/2022 Sex: Female Functional Status Question Answer Note LastModified by Organizat ion Details LastModified Time What is your exercise level? Moderate [id number] Information not available 06/14/2022 Mental Status None recorded. Family History Relationship Description Onset Age of this Age Resolved Age Notes LastModified by Organization Details LastModified Time Brother Myocardial infarction [id number] [id number] Not available 06/14/2022 14:56:01 Mother Essential hypertension MIGRATION.663 [id number] Not available 06/14/2022 14:56:01 Mother Aneurysm MIGRATION.713 [id number] Not available 06/14/2022 14:56:01 Paternal Grandmother Malignant neoplastic disease MIGRATION.695 [id number] Not available 06/14/2022 14:56:01 Father Malignant neoplastic disease MIGRATION.018 [id number] Not available 06/14/2022 14:56:01 Maternal Aunt Malignant neoplastic disease MIGRATION.376 [id number] Not available 06/14/2022 14:56:01 Maternal Aunt Diabetes mellitus MIGRATION.318 [id number] Not available 06/14/2022 14:56:01 Medical History Condition Response URINARY/BLADDER/KIDNEY PROBLEMS Y HYPERTENSION Y Gynecological History Statement/Question Response How many live births 2 Date of Last Colonoscopy Date of Last Mammogram Date of LMP Most Recent Bone Density Date of Last Pap Current Control Method Menopause Obstetrics History GPAL:G 6 P 2 0 4 2 Type Value Multiple Births 0 Full Term 2 Induced 0 Spontaneous 4 Premature 0 Living 2 Ectopics 0 Total 6 Immunizations Vaccine Type Date Status Note Provider Nam e and Address Organization Details Recorded Time zoster recombinant 2 completed Not Available [facility] 06/14/2022 15:01:51 zoster recombinant 2 completed Not Available [facility] 06/14/2022 15:01:51 Past Encounters Encounter ID Performer Location Encounter Start Date Encounter Closed Date Diagnosis/Indication Diagnosis SNOMED-CT Code Diagnosis ICD10 Code Diagnosis Note [id number] [facility] [address] [place] [address] 08/31/2020 00:00:00 08/31/2020 16:14:02 [id number] [facility] [address] [address] 10/20/2020 00:00:00 10/20/2020 17:11:37 [id number] [facility] [address] [address] 11/10/2020 00:00:00 11/10/2020 17:35:37 [id number] [facility] [address] [place] [address] , [address] [address] 07/11/2021 00:00:00 07/11/2021 17:08:29 [id number] [facility] [address] [place] [address] , [address] [address] 12/12/2021 00:00:00 12/12/2021 17:01:02 [id number] [facility] [address], [address] [address] 02/27/2022 00:00:00 02/27/2022 14:51:34 [id number] [facility] [address] [facility] [address] [place] [address] 03/27/2022 00:00:00 03/27/2022 13:21:33 [id number] Radha Rincon, MANAGER MEDICAID-C [facility] [address] [facility] [address] [place] [address] 06/26/2022 12:19:41 06/26/2022 12:59:48 Prediabetes [id number] R73.03 on mounjaro per her request, she is aware this is offlabel for prediabete s Will increase to 7.5mg to help with her increase in cravings pt is aware of side effects, risks, benefitspt denies any personal or family history of MEN II or MTC, denies and personal history of pancreatit ispt knows to call the office if any severe n/v or abdominal pain Essential hypertension 75795022 I10 follows cardiology - Dr. Christensen at [facility] metoprolol Rheumatoid arthritis 698 57493 M06.9 follows rheumatolo gy- Dr. Kelley at [facility] MTX and folic acidCBC and CMP done through his office Recurrent acute otitis media [id number] H65.199 follows ENT- [facility]. [facility] [place] thyroiditis 21 360750 E06.3 positive for TPO antibodies TSH and T4 still normalwill continue to monitorthy roid u/s 08/2021- no nodules Hyperlipidemia 38653888 E78.5 mild, no medscontin ue to work on diet/exerc ise Hemorrhoids 14823852 K64 .9 on Anusol p.r.n.Jose Daniel mmend between 20-25 g of fiber in her dietAvoid soap and scrubbing to rectal areaCall office if worse and we can get her another general surgery referral Diet education 59933082 Z71.3 long discussion of nutritionw e discussed trying to avoid the fast and processed foods (including sugared beverages like chocolate milk)aim to eat lean meats, fresh fruits, fresh veggies, complex carbscook at home, avoid eating out or keep to a very low frequency no more than 1x per weekaim to get 30 min of exercise most days of the weekavoid sugar sweetened beveragess he's low on her protein- aim to get 100g protein per day we again discussed the above. I wrote down a list of protein containing foods and gave that to her, we also brainstorm ed together some foods she might like to try which are high in proteinove r 30 min spent with patient and over half spent on counseling [id number] Radha Rincon, MANAGER MEDICAID-Anupama [facility] Internal Med [facility] [address] [facility], [address] [place] [address] 10/02/2022 12:05:01 10/02/2022 13:07:37 Prediabetes 315406899 R73.03 on mounjaro per her request, she is aware this is offlabel for prediabete s pt is aware of side effects, risks, benefitspt denies any personal or family history of MEN II or MTC, denies and personal history of pancreatit ispt knows to call the office if any severe n/v or abdominal pain Essential hypertension 34021052 I10 follows cardiology - Dr. Christensen at [facility] metoprolol Rheumatoid arthritis 698 85749 M06.9 follows rheumatolo gy- Dr. Kelley at [facility] MTX and folic acidCBC and CMP done through his office Recurrent acute otitis media 186658014 H65.199 follows ENT- Dr. [facility] [place] thyroiditis 21 016333 E06.3 positive for TPO antibodies TSH and T4 still normalwill continue to monitorthy roid u/s 08/2021- no nodules Hyperlipidemia 31816142 E78.5 mild, no medscontin ue to work on diet/exerc ise Hemorrhoids 55823539 K64 .9 on Anusol p.r.n.Jose Daniel mmend between 20-25 g of fiber in her dietAvoid soap and scrubbing to rectal areaCall office if worse and we can get her another general surgery referral Diet education 91630071 Z71.3 long discussion of nutritionw e discussed trying to avoid the fast and processed foods (including sugared beverages like chocolate milk)aim to eat lean meats, fresh fruits, fresh veggies, complex carbscook at home, avoid eating out or keep to a very low frequency no more than 1x per weekaim to get 30 min of exercise most days of the weekavoid sugar sweetened beveragess he's low on her protein- aim to get 100g protein per day we again discussed the above. I wrote down a list of protein containing foods and gave that to her, we also brainstorm ed together some foods she might like to try which are high in proteinove r 30 min spent with patient and over half spent on counseling Loss of hair [id number] L 65.9 check labsneeds to increase her protein intake as above [id number] Radha Rincon, MANAGER MEDICAID-C [facility] [place] [address] [facility], [address] [place] [address] 01/01/2023 12:12:10 01/01/2023 13:18:21 Prediabetes 279604389 R73.03 she decided to stop the Mounjarois now working on lifestyle measures for the diabetes Essential hypertension 96983736 I10 follows cardiology - Dr. Christensen at [facility] metoprolol Rheumatoid arthritis 698 04709 M06.9 follows rheumatolo gy- Dr. Kelley at [facility] MTX and folic acidCBC and CMP done through his office Recurrent acute otitis media 440947239 H65.199 follows ENT- 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 following neurology- [facility] gabapentin from them neuro wanted to rule out GERD symptoms so we will try a course of PPI- recommend she try this for at least 2 weeks, if no improvemen t after that time period, can d/c it Serum iron above reference range 005413080 R79.0 recommend she stop the multivitam in with iron- instead can do an iron free preparatio n- check label labs ordered by neurology [id number] Ly Wilson APRN [facility] Internal [facility] [address] [facility] [address] [place] [address] 07/02/2023 14:09:32 07/02/2023 14:49:49 [place] thyroiditis 41259276 E06.3 Essential hypertension 85104077 I10 Hyperlipidemia 88379292 E78.5 Osteoporosis 19596810 M8 1.0 [id number] Ly Wilson APRN [facility] [address] [facility] [address] [facility] [address] [place] [address] 01/01/2024 14:02:43 01/01/2024 15:16:36 Hepatitis C screening 436117911 Z11.59 Nasal infection 18201947 3 J32.9 Obesity 321615460 E66.9 Patient to see if insurance will cover Zepbound or Wegovy [place] thyroiditis 21 917582 E06.3 Health Concerns Section Related Observation LastModified by Organization Detai ls LastModified Time None Recorded Concern Status LastModified by Organization Details LastModified Time None Recorded Advance Directives Directive None Recorded Payers Encounter Date Sequence Insurance Name Policy Number Policy Sumner Covered Member ID Sumner Member ID Guarantor Name 06/26/2022 1 [place] [id number] Fouzia Gunter [id number] 05 Fouzia Gunter 10/02/2022 1 [place] [id number] Fouzia Gunter [id number] 05 Fouzia Gunter 01/01/2023 1 [place] [id number] Fouzia Gunter [id number] 05 Fouzia Gunter 07/02/2023 1 [place] [id number] Fouzia Gunter [id number] 05 Fouzia Gunter 01/01/2024 1 [place] [id number] Fouzia Gunter [id number] 05 Fouzia Gunter Notes Date Note Type Note Provider Name and Address Organization Details Recorded Time 06/26/2022 text/html Fouzia presents to day for follow-up. She has lost about 30 lb since I last saw her. She reports the [employer] had been working very well for her up until about the past month or so. She reports her cravings have returned she is struggling to control her portions. She does report is in a great job controlling her blood sugars. She gets her blood sugars regularly checked by Rheumatology and tells me that they have been normal. She cannot remember the last time she had normal blood sugars. She is requesting to go up on the dose to try to help with the cravings. She notes she has been eating a lot more chocolate lately. She notes overall, she has been feeling better. The weight loss has helped with her joint pain. She feels like she can move more. Previously, I have talked with her at length about tracking her nutrition and making sure she gets enough protein. She did do that for a while but has not been doing it lately. She thinks she is not getting enough protein. She has some questions about what foods she could include to increase her protein intake. Blood pressures been well controlled. She has not had any issues with metoprolol. She continues to follow rheumatology for her RA meds. Radha Rincon, MANAGER MEDICAID-C [address] [facility], [facility] [address], [place], [address], [facility] 06/26/2022 14:09:14 10/02/2022 text/html Fouzia presents to day for follow up. She continues to do very well on the [place]. She denies any side effects. Since we started the medication for her prediabetes, she is down a total of about 40 lb. She tells me she has a lot more energy. She feels really good overall and is able to even play with her young grandchild at the park, something she had been able to do before. She continues to follow rheumatology for her RA. She had a flare recently because they were out of her medication but she is back on it now. She complains today of some hair loss. She is working on her diet, though she tells me she is still pretty low in protein and has not been doing what I suggested in terms of increasing her protein intake. She is not currently getting any formal exercise. We had previously talked about her starting some resistance training, she had to stop that due to her RA flare. She is due for labs. JERAMIE Sanchez [address], [place], [address], [facility] [employer] [facility] [employer] 10/02/2022 14:51:07 01/01/2023 text/html Fouzia presents to day for follow up. she has been to the ENT and the neurologist for the burning mouth syndrome. The ENT did not feel like there was anything they could do for her and recommended Neurology. She saw Neurology a few weeks ago and he started her on some gabapentin. She reports no improvement in the symptoms. She reports that she is having difficulty tolerating it so she does have a call out to him and is waiting for call back. On his note, the neurologist had recommended we make sure that she is not having any acid reflux symptoms. She told me she had tried some pbsq-ohr-bgpoukp acid medicines with no improvement. However when I talked to her she only tried them for a day or 2. So it certainly seems like this is something we need to rule out. Urgent care had already put her on a course of Valtrex which did not improve anything. The neurologist does not feel like she is having any shingles symptoms. She does have history of this burning mouth syndrome it happened to her years ago. It spontaneously went away on its own. Neurology was thinking she might have had some vitamin deficiencies. She brought her labs in with her today. The only thing I really see here is that her iron is little bit elevated. She does take of vitamin with iron in it. She decided to stop the Mounjaro, so she is working on lifestyle changes for her prediabetes. JERAMIE Sanchez [address], [address], [place], [address], [employer] [facility] [employer] 01/01/2023 14:56:12 07/02/2023 text/html Fouzia presents to day to establish care as her previous provider left the area. She states that the burning mouth syndrome has resolved. She states that she followed up with her RA doctor in February. She states that she feels like she needs to lose weight. She has prediabetes and BMI is 33.2. Mounjaro was discussed. 01/01/2023liz presents today for follow up. she has been to the ENT and the neurologist for the burning mouth syndrome. The ENT did not feel like there was anything they could do for her and recommended Neurology. She saw Neurology a few weeks ago and he started her on some gabapentin. She reports no improvement in the symptoms. She reports that she is having difficulty tolerating it so she does have a call out to him and is waiting for call back. On his note, the neurologist had recommended we make sure that she is not having any acid reflux symptoms. She told me she had tried some rxqy-ohl-gomzyua acid medicines with no improvement. However when I talked to her she only tried them for a day or 2. So it certainly seems like this is something we need to rule out. Urgent care had already put her on a course of Valtrex which did not improve anything. The neurologist does not feel like she is having any shingles symptoms. She does have history of this burning mouth syndrome it happened to her years ago. It spontaneously went away on its own. Neurology was thinking she might have had some vitamin deficiencies. She brought her labs in with her today. The only thing I really see here is that her iron is little bit elevated. She does take of vitamin with iron in it. She decided to stop the Mounjaro, so she is working on lifestyle changes for her prediabetes. Ly Wilson APRN [address] [facility], [facility] [address], [place], [address], [place] [facility] 10/09/2023 14:30:16 01/01/2024 text/html Fouzia presents to day for 6 month follow up. She states that she would like to discuss weight loss. She states that she has a small rash to her right upper abdomen. She states that it does not itch, no other location seen. 07/02/2023liz presents today to establish care as her previous provider left the area. She states that the burning mouth syndrome has resolved. She states that she followed up with her RA doctor in February. She states that she feels like she needs to lose weight. She has prediabetes and BMI is 33.2. Mounjaro was discussed. 01/01/2023andimargaret presents today for follow up. she has been to the ENT and the neurologist for the burning mouth syndrome. The ENT did not feel like there was anything they could do for her and recommended Neurology. She saw Neurology a few weeks ago and he started her on some gabapentin. She reports no improvement in the symptoms. She reports that she is having difficulty tolerating it so she does have a call out to him and is waiting for call back. On his note, the neurologist had recommended we make sure that she is not having any acid reflux symptoms. She told me she had tried some pbhi-cdi-scbloji acid medicines with no improvement. However when I talked to her she only tried them for a day or 2. So it certainly seems like this is something we need to rule out. Urgent care had already put her on a course of Valtrex which did not improve anything. The neurologist does not feel like she is having any shingles symptoms. She does have history of this burning mouth syndrome it happened to her years ago. It spontaneously went away on its own. Neurology was thinking she might have had some vitamin deficiencies. She brought her labs in with her today. The only thing I really see here is that her iron is little bit elevated. She does take of vitamin with iron in it. She decided to stop the Mounjaro, so she is working on lifestyle changes for her prediabetes. Ly Wilson APRN [address] [facility], [facility] [address], [place], [address], [facility] 01/01/2024 15:15:08 OBGyn Episode No OBEpisode recorded.
--- OUTSIDE RECORDS SUMMARY | 2024-06-09 17:55 | XMS_ITS | Referral Summary ---
Author Organization [facility] Address [address] [place] [address] Care Team Providers Care Cytometry Technologist Name Role Phone Ly Wilson Primary Care Provider [phone] Source Comments [facility],non-owned Affiliates and Associated Physician Practices is amultiple site organization consisting of ambulatory clinics and hospital sitesin [place], [place], [place] and [place]. This disclosure is being madepursuant to the Care Everywhere program and may not contain all information available regarding this patient. Last updated 18.[facility] Encounters Date Type Department Care Team Description 06/02/2024 Travel 06/02/2024 3:[address] Office Visit [facility] - Rheumatology [address] [place] [phone] Giacomo Washburn MD Rheumatoid arthritis involving multiple sites with positive rheumatoid factor (HCC) (Primary Dx); 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; [facility] current use of immunosuppressive drug; Transaminitis 05/30/2024 Orders Only [facility] - Rheumatology [address] [place] [phone] Giacomo Washburn MD Rheumatoid arthritis involving multiple sites with positive rheumatoid factor (HCC); 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; [facility] current use of immunosuppressive drug 04/04/2024 Orders Only [facility] [address] [place] [phone] Giacomo Washburn MD Rheumatoid arthritis involving multiple sites with positive rheumatoid factor (HCC); 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; 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 Medications * Be aware that medications may not be up to date on this document. Alwaysverify current medications with the patient. Medication Sig Dispensed Refills Start Date End Date Status metoprolol succinate XL 24hr (TOPROL XL) 25 MG tablet Take 2 (two) tablets by mouth 1 (one) time 1 Active Enbrel AutoTouch AutoInjectorIndicatio ns:Rheumatoid arthritis involving multiple sites with positive rheumatoid factor (HCC) Use 1 (one) device as directed 4 Active Additional Information Patient not taking.Reported on 06/02/2024 Etanercept (Enbrel Mini) 50 MG/ML SOCTIndications:Rheum atoid Arthritis Inject 50 mg subcutaneously every 7 days Reasons: Rheumatoid Arthritis 13 Cartridge 3 4 Active vitamin D3 (Cholecalciferol) 25 MCG (1000 UNITS) tablet Take 1 (one) tablet by mouth once daily Active lactobacillus extra strength (Florajen) capsule Take 1 (one) capsule by mouth 3 times daily Active Multiple Vitamins-Minerals (HAIR SKIN & NAILS ADVANCED PO) Active folic acid (Folvite) 1 MG tabletIndications:Rhe umatoid arthritis involving multiple sites with positive rheumatoid factor (HCC),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,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 Take 1 (one) tablet by mouth once daily 90 tablet 3 4 025 Active albuterol HFA (Proventil; Ventolin; Proair) 108 (90 Base) MCG/ACT inhaler INHALE 2 PUFFS BY MOUTH EVERY 4 HOURS DIRECTED FOR SHORTNESS OF BREATH 5 Active predniSONE (Deltasone) 5 MG tabletIndications:Rhe umatoid Arthritis Take 5 mg daily as needed for arthritis while holding Methotrexate Reasons: Rheumatoid Arthritis 30 tablet 5 Active leflunomide (Arava) 20 MG tablet Take 1 (one) tablet by mouth once daily 90 tablet 3 5 026 Active predniSONE (Deltasone) 5 MG tabletIndications:Rhe umatoid Arthritis Take 5 mg daily as needed for arthritis while holding Methotrexate Reasons: Rheumatoid Arthritis 30 tablet 3 025 Discontin ued(Reord er) Methotrexate, PF, (Rasuvo) 17.5 MG/0.35MLIndications: Rheumatoid Arthritis Inject 17.5 mg subcutaneously every 7 days Reasons: Rheumatoid Arthritis 4.55 mL 2 4 025 Discontin ued(Tx Complete) Active Problems Problem Noted Date Diagnosed Date 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 01/06/2021 Rheumatoid arthritis involvi ng multiple sites with positive rheumatoid factor 12/02/2020 [facility] current use of immunosuppressive drug 12/02/2020 [facility] [...] Comments Blood Pressure 134/86 06/02/2024 3:[address] Pulse 65 06/02/2024 3:[address] Temperature 36.1 C (96.9 F) 06/02/2024 3:[address] Respiratory Rate 18 11/02/2021 10:16 AM CDT Oxygen Saturation 96% 06/02/2024 3:[address] Inhaled Oxygen Concentration - - Weight 112 kg (247 lb) 06/02/2024 3:[address] Height 175.3 cm (5' 9 ) 06/02/2024 3:[address] Body Mass Index 36.48 06/02/2024 3:[address] Plan of Treatment Upcoming Encounters Date Type Department Care Team (Late st Contact Info) Description 08/04/2024 2:00 PM CDT Office Visit [facility] - Rheumatology [address] [place] [address], [place] [phone] Giacomo Washburn MD [address] [place] [address], [place] [phone] Procedures Procedure Name Priority Date/Time Associated Diagnosis Comments COMPREHENSIVE METABOLIC PANEL Routine 05/30/2024 8:[address] Rheumatoid arthritis involving multiple sites with positive rheumatoid factor (HCC) 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 CBC W AUTO DIFFERENTIAL Routine 05/30/2024 8:[address] Rheumatoid arthritis involving multiple sites with positive rheumatoid factor (HCC) 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 from Last 3 Months Results * (ABNORMAL) CBC WITH DIFFERENTIAL (05/30/2024 8:[address]ER) White Blood Cell Count 10.4 3.8 - [...] Comment: REPORT COMMENT: FASTING:YES Test Performed at: [facility] [address] EDSON SANDERSON MD Blasts [facility] Comments [facility] Comment: REPORT COMMENT: FASTING:YES Test Performed at: [facility] [address] EDSON SANDERSON MD Blood BLOOD SPECIMEN / Unknown 05/30/2024 8:[address] 05/30/2024 8:[address] Giacomo Washburn MD LAB - HEMATOLOGY ORD ERABLES [address] [address] * (ABNORMAL) COMPREHENSIVE METABOLIC PANEL (05/30/2024 8:[address]) Glucose 104(H) 65 - 99 mg/dL [facility] [...] 29 U/L [facility] Comment: Test Performed at: [facility] [address] [place] [address] EDSON SANDERSON MD Blood BLOOD SPECIMEN / Unknown 05/30/2024 8:[address] 05/30/2024 8:[address] Giacomo Washburn MD LAB - CHEMISTRY [facility] [address] [place] [address] from Last 3 Months Care Teams Cytometry Technologist Relationship Specialty Start Date End Date Ly Wilson [facility] [place] [address] PCP - General 08/20/23
--- OUTSIDE RECORDS SUMMARY | 2024-06-09 17:55 | XMS_ITS | CONTINUITY OF CARE DOCUMENT ---
Author Name johan prado Address Unknown Organization [facility] Address [address] [address] [place] [address] Phone [phone] Care Team Providers Care Enterprise Applications Manager Name Role Phone Fermin GODFREY, Rashard Unavailable [phone] Steve WHEELER, Aureliano Unavailable Steve CONROYP, Aureliano Unavailable PROBLEMS Condition Status Date Provider Notes Palpitations active Rashard Christensen MD CHEST PAIN, nml stress test 04/2018, cor ca score zero active Rashard Christensen MD HTN essential active Rashard Christensen MD Lower extremity edema active Marky Brar Esperanza's thyroiditis active Rashard Christensen MD SARS-associated coronavirus, 02/2020 active Thomas Perdomo Obesity active Rashard Christensen MD FAMILY HISTORY OF HEART DISEASE active Chandan Christensen MD Family History of Sudden Cardiac : active ? Rashard Christensen MD Family History of Hypertension: completed - Coyd Perdomo ENCOUNTERS Date Type Provider Location Encounter Diag nosis - In-person encounter Office Visit Rashard Christensen MD [facility] Lower extremity edema - In-person encounter Office Visit Rashard Christensen MD [facility] - In-person encounter Office Visit Rashard Christensen MD [facility] Esperanza's thyroiditis - In-person encounter Office Visit Rashard Christensen MD [facility] - In-person encounter Office Visit Rashard Christensen MD [facility] Family History of Hypertension:SARS-associat ed coronavirus, 02/2020 - In-person encounter Office Visit Rashard Christensen MD [facility] - In-person encounter Office Visit Rashard Christensen MD [facility] CHEST PAIN, nml stress test 04/2018, cor ca score zero - In-person encounter Office Visit Rashard Christensen MD [facility] Family History of Sudden Cardiac :PalpitationsFAMILY HISTORY OF HEART DISEASEObesityCHEST PAIN, nml stress test 04/2018, cor ca score zeroHTN essential VITAL SIGNS Date Observation Value Provider Body Mass Index (Ratio) 35.15 kg/m2 Chandan Christensen MD pulse rate 71 /[facility], diastolic 97 mm[Hg] [facility] blood pressure, systolic 142 mm[Hg] Rowenataylor bailey Moody oxygen saturation, oximetry 97 % [facility] respiratory rate E&M 14 /min [facility] weight E&M 245 [lb_av] [facility] height E&M 70 [in_i] [facility] Body Mass Index (Ratio) 31.79 kg/m2 Chandan Christensen MD pulse rate 67 /min Lindsay Wesley blood pressure, cuff size regular leonides Wesley blood pressure, diastolic 83 mm[Hg] leonides Wesley blood pressure, systolic 136 mm[Hg] She antonieta Wesley oxygen saturation, oximetry 96 % Lindsay Wesley respiratory rate E&M 20 /min Lindsay Wesley weight E&M 221.6 [lb_av] Lindsay Wesley height E&M 70 [in_i] Lindsay Wesley Body Mass Index (Ratio) 34.15 kg/m2 Chandan Christensen MD blood pressure, diastolic 83 mm[Hg] Micki donovan [place] blood pressure, systolic 129 mm[Hg] Gabe gina [place] oxygen saturation, oximetry 98 % Ellen [place] pulse rate 83 /min [facility] weight E&M 238 [lb_av] Ellen [facility] respiratory rate E&M 16 /min Shavon bolaños [place] blood pressure, cuff size large Micki donovan [place] height E&M 70 [in_i] Ellen Gerrirowena greg Body Mass Index (Ratio) 34.43 kg/m2 Chandan Christensen MD blood pressure, diastolic 87 mm[Hg] Li nkLogic blood pressure, systolic 154 mm[Hg] Krista kLogic blood pressure, diastolic 87 mm[Hg] Ca therine [place] blood pressure, systolic 154 mm[Hg] Cat herine [place] pulse rate 68 /min Benita Bronson respiratory rate E&M 16 /min Catheri ne [place] oxygen saturation, oximetry 98 % Benita [place] weight E&M 240 [lb_av] Benita [place] blood pressure, cuff size regular Ca therine Bronson height E&M 70 [in_i] Benita Bronson Body Mass Index (Ratio) 33.51 kg/m2 Chandan Christensen MD blood pressure, diastolic 60 mm[Hg] Chloe Keane blood pressure, systolic 100 mm[Hg] Radha Keane oxygen saturation, oximetry 96 % Shawna Keane respiratory rate E&M 16 /min Mario Keane pulse rate 75 /min Shawna nicholas weight E&M 233.6 [lb_av] Shawna park height E&M 70 [in_i] Shawna nicholas Body Mass Index (Ratio) 31.56 kg/m2 Chandan Christensen MD blood pressure, cuff size regular Cy nthia Campuzano blood pressure, diastolic 70 mm[Hg] Cy nthia Campuzano blood pressure, systolic 118 mm[Hg] Kesha kseniaa Campuzano respiratory rate E&M 16 /min Coty Campuzano pulse rate 86 /min Coty Campbel l oxygen saturation, oximetry 97 % Coty Campuzano weight E&M 220 [lb_av] Coty Campbel l height E&M 70 [in_i] Coty Campbel l Body Mass Index (Ratio) 32.71 kg/m2 Chandan Christensen MD blood pressure, cuff size regular Cy nthia Campuzano blood pressure, diastolic 70 mm[Hg] Cy nthia Campuzano blood pressure, systolic 130 mm[Hg] Kesha thia Campuzano oxygen saturation, oximetry 98 % Coty Campuzano respiratory rate E&M 16 /min Coty Campuzano pulse rate 75 /min Coty Campbel l weight E&M 228 [lb_av] Coty Campbel l height E&M 70 [in_i] Coty Campbel l Body Mass Index (Ratio) 32.14 kg/m2 Chandan Christensen MD blood pressure, diastolic 70 mm[Hg] Da mireille Bj blood pressure, systolic 128 mm[Hg] Dac ia Bj oxygen saturation, oximetry 96 % Yolanda Bj respiratory rate E&M 16 /min Yolanda V oss pulse rate 67 /min Yolanda Bj weight E&M 224 [lb_av] Yolanda Bj height E&M 70 [in_i] Yolanda Bj ALLERGIES Allergy Name Onset Date Reaction Criticality Status AUGMENTIN High Criticality active SULFA High Criticality active TETANUS High Criticality active HISTORY OF MEDICATION USE Medication Status Instructions Dates Provider Indications Com ments metoprolol succinate 50 mg tablet extended release 24 hr active Take 1 tablet by mouth once a day Cherelle Burns metoprolol succinate 25 mg tablet extended release 24 hr completed Take 1 tablet by mouth twice a day TAKE 1 TABLET BY MOUTH TWICE DAILY - Marky Brar metoprolol succinate 25 mg tablet extended release 24 hr completed TAKE 1 TABLET BY MOUTH TWICE DAILY - Giacomo Pena metoprolol succinate 25 mg tablet extended release 24 hr completed Take 1 tablet by mouth twice a day TAKE 1 TABLET BY MOUTH TWICE A DAY - Rose Davila methotrexate sodium 25 mg/mL solution active INJECT 0.8 ML UNDER THE SKIN EVERY 7 DAYS. DISCARD VIAL 28 DAYS AFTER 1ST USE, STORE AT 35-46*F Ellen Greene folic acid 1 mg tablet active Benita Dobson metoprolol succinate 25 mg tablet extended release 24 hr completed TAKE ONE TABLET BY MOUTH TWICE A DAY - Ellen Greene Vitamin D3 50 mcg (2,000 unit) tablet completed 1 tablet by mouth once a day - Marky Brar Hair, Skin and Nails Advanced 3.3 mg iron-25 mcg tablet active Take 1 tablet by mouth once a day Coty Campuzano VITAMIN D3 1000 UNIT ORAL CAPSULE completed Take 1 tablet once a day - Coty Campuzano metoprolol succinate 25 mg tablet extended release 24 hr completed Take 1 tablet by mouth twice a day - Cherelle Burns SOCIAL HISTORY Date Observation Value Provider alcohol use, average drinks per day social Marky Brar alcohol use yes Marky Brar smoking status Never smoker Marky Brar social history E&M S moking History: Pierce barba has never smoked. Marky Coxwillis social history reviewed E&M revi ewed - no changes required Marky Starktaylor smoking status Never smoker Lindsay Wesley social history E&M S moking History: P freda has never smoked. Marky Starktaylor smoking status Never smoker Ellen Talley and social history reviewed E&M revi ewed - no changes required Rashard Christensen MD social history E&M S moking History: Pierce barba has never smoked. Marky Coxwillis smoking status Never smoker Benita farah social history reviewed E&M revi ewed - no changes required Marky Coxwillis social history E&M S moking History: Pierce barba has never smoked. Thomas Perdomo social history reviewed E&M revi ewed - no changes required Thomas Perdomo smoking status Never smoker Shawnamargaret Mendoza social history E&M S moking History: iPerce barba has never smoked. Rashard Christensen MD social history reviewed E&M revi ewed - no changes required Rashard Christensen MD smoking status Never smoker Coty galdamez social history E&M Smoking Histo ry: P freda has never smoked. Rashard Christensen MD social history reviewed E&M revi ewed - no changes required Rashard Christensen MD number of grandchildren Rashard Christensen MD T miles Christensen MD social history E&M S moking History: Pierce barba has never smoked. Rashard Christensen MD social history reviewed E&M revi ewed - no changes required Rashard Christensen MD alcohol use, average drinks per day social Yolanda Lorenzo alcohol use yes Yolanda Lorenzo smoking status Never smoker Yolanda Lorenzo FAMILY HISTORY Family Member Condition Full Brother Family History of Davidson dden Cardiac : Mother Family History of Hy pertension: INSURANCE PROVIDERS Payer name Policy type / Coverage type [place] red democr[employer] [facility] [id number] ADVANCE DIRECTIVES Name Date DISCUSSED - NO DECISION MADE TREATMENT PLAN Date Name Performer [id number],S, Marky Ahmedza i [id number],S, Marky Ahmedza i [id number],S, Marky Ahmedza i [id number],B, Marky Ahmedza i [id number],S, Marky Ahmedza i [id number],S, Marky Ahmedza i [id number],S, Marky Ahmedza i [id number],S, Marky Ahmedza i [id number],B, Marky Ahmedza i [id number],B, Marky Ahmedza i [id number],S, Marky Ahmedza i [id number],S, Marky Ahmedza i [id number],S, Marky Ahmedza i [id number],S, Marky Ahmedza i Cardiology:This visi t has been a part of the consistent, comprehensive, and ongoing management of the chronic medical condition(s) listed above for the patient. BP today: 142/97 P rior BP: 136/83 (01/15/2023) Her updated medication list for this problem includes: Metoprolol Succinate 50 Mg Tablet Extended Release 24 Hr (Metoprolol succinate) ..... Take 1 tablet by mouth once a day Orders: C omplete Echo ([id number]) Rashard Christensen MD Cardiology Marky Lopezmedzataylor Cardiology: H er updated medication list for this problem includes: Metoprolol Succinate 50 Mg Tablet Extended Release 24 Hr (Metoprolol succinate) ..... Take 1 tablet by mouth once a day Marky Ahmedzai Cardiology Marky Ahmedzai Cardiology: B P today: 142/97 P rior BP: 136/83 (01/15/2023) Her updated medication list for this problem includes: Metoprolol Succinate 50 Mg Tablet Extended Release 24 Hr (Metoprolol succinate) ..... Take 1 tablet by mouth once a day Orders: Anupama mancillalete Echo ([id number]) Marky Ahmedzai Cardiology: H er updated medication list for this problem includes: Metoprolol Succinate 50 Mg Tablet Extended Release 24 Hr (Metoprolol succinate) ..... Take 1 tablet by mouth once a day Marky Ahmedzai Cardiology Marky Ahmedzai Cardiology Marky Ahmedzai Cardiology Marky Ahmedzai Cardiology Marky Ahmedzai Cardiology Marky Ahmedzai Cardiology Marky Ahmedzai Cardiology Marky Ahmedzai Cardiology Marky Ahmedzai Cardiology Marky Ahmedzai Cardiology Marky Ahmedzai Cardiology Marky Ahmedzai Cardiology Marky Ahmedzai Cardiology Marky Ahmedzai Cardiology Marky Ahmedzai Cardiology Thomas Perdomo Cardiology Thomas Garayt Cardiology Thomas Perdomo Cardiology Thomas Perdomo Cardiology Thomas Nacht Cardiology follow up Rashard parry MD Cardiology follow up Rashard parry MD Cardiology follow up Rashard parry MD Cardiology follow up Rashard parry MD Cardiology follow up Rashard parry MD Cardiology follow up Rashard parry MD Cardiology follow up Rashard parry MD Cardiology New Patient Tonidedrick bray MD Cardiology New Patient Toniya Ok bray MD Cardiology New Patient Tonjerrica bray MD Cardiology New Patient Rashard bray MD Cardiology New Patient Tonjerrica bray MD Date Name Complete Echo Mobile Cardiac Tele CT, Coronary Calcium Score HISTORY OF PROCEDURES Procedure Date Procedure Name Provider Procedure Notes S tatus Complex e/m visit add on Rashard Christensen MD completed EKG Rashard Christensen MD completed EKG Rashard Christensen MD completed EKG Rashard Christensen MD completed EKG Rashard Christensen MD completed EKG Rashard Christensen MD completed CT- Coronary CA score Rashard Christensen MD completed Event Monitor Rashard Christensen MD comple lizzeth
--- OUTSIDE RECORDS SUMMARY | 2024-06-09 17:55 | XMS_ITS | Clinical Summary ---
Author Organization [facility] Address [address] [facility] [place] [address] Care Team Providers Care Fire Inspector Name Role Phone Ly Wilson Primary Care Provider [phone] Source Comments [facility],non-owned Affiliates and Associated Physician Practices is amultiple site organization consisting of ambulatory clinics and hospital sitesin [place], [place] and [place]. This disclosure is being madepursuant to the Care Everywhere program and may not contain all information available regarding this patient. Last updated 18.[facility] Allergies Active Allergy Reactions Criticality Noted Date [...] sites with positive rheumatoid factor (HCC),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,nursing home current use of immunosuppressive drug Take 1 [...] multiple sites with positive rheumatoid factor 12/02/2020 manager intermediate current use of immunosuppressive drug 12/02/2020 FAYE positive 12/02/2020 Encounters Date Type Department Care Team Description 06/02/2024 3:00 PM STEEL DIE PRINTER Office Visit [facility] - Rheumatology [address] [place] [address], [place] [phone] Giacomo Washburn MD Rheumatoid arthritis involving multiple sites with positive rheumatoid factor (HCC) (Primary Dx); 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; manager intermediate current use of immunosuppressive drug; Transaminitis 06/02/2024 Travel 05/30/2024 Orders Only [facility] - Rheumatology [address] [place] [phone] Giacomo Washburn MD Rheumatoid arthritis involving multiple sites with positive rheumatoid factor (HCC); 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; nursing home current use of immunosuppressive drug 04/04/2024 Orders Only [facility] - Rheumatology [address] [place] [phone] Giacomo Washburn MD Rheumatoid arthritis involving multiple sites with positive rheumatoid factor (HCC); 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; nursing home current use of immunosuppressive drug from Last 3 Months Family History Medical History Relation Name Comments Scleroderma Father Arthritis - Rheumatoid Paternal Grandfather Relation Name Status Comments Father Paternal Grandfather Social History Tobacco Use Types Packs/Day Years [...] Comments Blood Pressure 134/86 06/02/2024 3:21 PM STEEL DIE PRINTER Pulse 65 06/02/2024 3:21 PM STEEL DIE PRINTER Temperature 36.1 C (96.9 F) 06/02/2024 3:21 PM STEEL DIE PRINTER Respiratory Rate 18 11/02/2021 10:16 AM CDT Oxygen Saturation 96% 06/02/2024 3:21 PM STEEL DIE PRINTER Inhaled Oxygen Concentration - - Weight 112 kg (247 lb) 06/02/2024 3:21 PM STEEL DIE PRINTER Height 175.3 cm (5' 9 ) 06/02/2024 3:21 PM STEEL DIE PRINTER Body Mass Index 36.48 06/02/2024 3:21 PM STEEL DIE PRINTER Plan of Treatment Upcoming Encounters Date Type Department Care Team (Late st Contact Info) Description 08/04/2024 2:00 PM CDT Office Visit [facility] - Rheumatology [address] [place] [address] [place] [phone] Giacomo Washburn MD [address] [place] [address] Health Maintenance Due Date Last Done Comments COLOGUARD (AGES 45-75) - COLON CA SCREENING 1964 COLON MONITORING 1964 COLONOSCOPY - COLON CA SCREENING 1964 CT COLONOGRAPHY - COLON CA SCREENING 1964 Colorectal Cancer Screening 1964 FIT - COLON CA SCREENING 1964 FLEX SIG - COLON CA SCREENING 1964 LIPID TESTING 1964 MAMMOGRAM 1965 PAP SMEAR 1964 HIV SCREENING 10/16/1979 HEPATITIS C SCREENING 10/11/1982 DTAP/TDAP/TD VACCINES (1 - Tdap) 10/16/1983 HEPATITIS B VACCINE (1 of 3 - 19+ 3-dose series) 10/16/1983 PNEUMOCOCCAL VACCINE 50+ (1 of 1 - PCV) 2014 ZOSTER VACCINE (1 of 2) 2014 COVID-19 VACCINE (1 - season) 2023 INFLUENZA VACCINE (#1) 2023 DEPRESSION SCREENING 04/16/2024 08/20/2023, 08/17/2022, 11/02/2021 SCREENING FOR DIABETES 05/30/2027 , 02/08/2024, 08/28/2023, Additional history exists HIB VACCINE Aged Out No longer eligi ble based on patient's age to complete this topic HPV VACCINE Aged Out No longer eligi ble based on patient's age to complete this topic MENINGOCOCCAL (Group B) VACCINE Aged Out No longer eligible based on patient's age to complete this topic MENINGOCOCCAL VACCINE Aged Out No romain sonia eligible based on patient's age to complete this topic Procedures Procedure Name Priority Date/Time Associated Diagnosis Comments COMPREHENSIVE METABOLIC PANEL Routine 05/30/2024 8:10 AM STEEL DIE PRINTER Rheumatoid arthritis involving multiple sites with positive rheumatoid factor (HCC) 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 manager intermediate current use of immunosuppressive drug CBC W AUTO DIFFERENTIAL Routine 05/30/2024 8:10 AM STEEL DIE PRINTER Rheumatoid arthritis involving multiple sites with positive rheumatoid factor (HCC) 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 manager intermediate current use of immunosuppressive drug from Last 3 Months Results * (ABNORMAL) CBC WITH DIFFERENTIAL (05/30/2024 8:10 AM STEEL DIE PRINTER) White Blood Cell Count 10.4 3.8 - [...] Comment: REPORT COMMENT: FASTING:YES Test Performed at: [facility] [id number] EDSON SANDERSON MD Blasts [facility] nRBC [facility] Comments [facility] Comment: REPORT COMMENT: FASTING:YES Test Performed at: [facility] [address] EDSON SANDERSON MD Blood BLOOD SPECIMEN / Unknown 05/30/2024 8:10 AM STEEL DIE PRINTER 05/30/2024 8:11 AM STEEL DIE PRINTER Giacomo Washburn MD LAB - HEMATOLOGY ORD ERABLES Performing Organization Address [facility] Co de Phone Number [facility] [address] [place] [address] * (ABNORMAL) COMPREHENSIVE METABOLIC PANEL (05/30/2024 8:10 AM STEEL DIE PRINTER) Glucose 104(H) 65 - 99 mg/dL [facility] [...] 29 U/L [facility] Comment: Test Performed at: [facility] [id number] [place] [id number] EDSON SANDERSON MD Blood BLOOD SPECIMEN / Unknown 05/30/2024 8:10 AM STEEL DIE PRINTER 05/30/2024 8:11 AM STEEL DIE PRINTER Giacomo Washburn MD LAB - CHEMISTRY ORDE RABKILO Performing Organization Address [facility]/ZIP Co de Phone Number [facility] [address] [place] [address] from Last 3 Months Care Teams Fire Inspector Relationship Specialty Start Date End Date Ly Wilson [facility] [place] [address] PCP - General 08/20/23
== END 2024-06-09 15:20 | disposition home or self-care (01) ==
LOC: ANHIMG 15:21
PROVIDERS: PCP Nurse Practitioner Family; Visit Provider Nurse Practitioner Family
DX: Z12.31 Encounter for screening mammogram for malignant neoplasm of breast (principal)
CPT/HCPCS: 77063; 77067

== ENCOUNTER 2025-01-20 08:22 | Outpatient (CLI) | payer BC, SELFPAY ==
--- OUTSIDE RECORDS SUMMARY | 2025-01-19 15:00 | XMS_ITS | Encounter Summary ---
Author Organization [facility] JOSÉWolf Pyros Pictures Anabella [facility] Address [address] [place] [address] Care Team Providers Care Bale Tie Machine Operator Name Role Phone Unavailable Primary Care Provider Unavailabl e Reason for Referral * Laboratory Services (Routine) - Open Specialty Diagnoses / Procedures Referred By Jazzy wolfe Referred To Contact Diagnoses Erythrocytosis Procedures JAK2 MUTATION Hilton Luciano MD [address] [place] [phone] Phone: tel: fax: Referral ID Status Reason Start Date Expiration Date Visits Re quested Visits Authorized [id number] Open 01/19/2025 02/19/2026 1 1 Reason for Visit * Reason Comments Establish Care Encounter Details Date Type Department Care Team (Late st Contact Info) Description 01/19/2025 3:00 PM CDT Office Visit [facility] Oncology and Hematology - Enrique [address] [place] [address] [address] [place] [address] Hilton Luciano MD [address] [place] [address] Shortness of breath (Primary Dx); Benign hypertension; Rheumatoid arthritis of other site, unspecified whether rheumatoid factor present (CMS/HCC); Esperanza's disease; Erythrocytosis Social History Tobacco Use Types Packs/Day Years Used Date Smoking Tobacco: Never Smokeless Tobacco: Never Tobacco Cessation:Counseling Given: Not Answered Alcohol Use Standard Drinks/Week Comments Yes 0 (1 standard drink = 0.6 oz pur e alcohol) 2 drinks a year Comments Unknown Sex and Gender Information Value Date Recorded Sex Assigned at Not on file Legal Sex Female 2:39 PM CDT Gender Identity Not on file Sexual Orientation Not on file documented as of this encounter Last Filed Vital Signs Vital Sign Reading Time Taken Comments Blood Pressure - - Pulse - - Temperature - - Respiratory Rate - - Oxygen Saturation - - Inhaled Oxygen Concentration - - Weight 109.9 kg (242 lb 3.2 oz) 01/19/2025 2:53 PM CDT Height 175.3 cm (5' 9) 01/19/2025 2:53 PM CDT Body Mass Index 35.77 01/19/2025 2:53 PM CDT documented in this encounter Progress Notes * Hilton Luciano MD - 01/19/2025 4:36 PM CDT Hematology-oncology consult Note Requesting Physician Ramses stout MD Primary Care Physician No primary care provider on file. 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 Measurable Disease ? Reason for Visit Fouzia Gunter is a 59 y.o. female who was referred for consultation for erythrocytosis. History of present illness This is a 59-year-old obese female with history of rheumatoid arthritis, hypertension andprediabetic state along with hyperlipidemia referred to me for erythrocytosis. According the patient she is been dealing with elevated hemoglobin for last 1-1/2 years duration. She denies any historyof thromboembolic events including stroke and heart attack. She denies any history of smoking. Denies any history of sleep apnea. She is not using any hormone therapy. She has gained 30 pound weightin last 1 year duration. She was on Mounjaro but that was discontinued 2 years ago and then she started gaining more weight. Her labs from August 2024 showed hemoglobin of 17.5 with hematocrit of 52.1. She denies any other new complaints. Past Medical History No past medical history on file. Hypertension Rheumatoid arthritis Hyperlipidemia Prediabetic Surgical History Past Surgical History: Procedure Laterality Date HX CHOLECYSTECTOMY Medications Current Outpatient Medications Medication Sig Dispense Refill metoprolol succinate (TOPROL XL) 50 mg Extended Release 24 hour tablet Take 50 mg by mouth daily. for high blood pressure EnbreL Mini 50 mg/mL (1 mL) Cartridge Inject 50 mg by subcutaneous injection every 7 days. leflunomide (ARAVA) 20 mg Tablet Take 20 mg by mouth daily. No current facility-administered medications for this visit. Allergies Allergies Allergen Reactions Amoxicillin-Pot Clavulanate Nausea and Vomiting Sulfa Dyne Hives Tetanus And Diphther. Tox (Pf) Anaphylaxis Immunizations: There is no immunization history on file for this patient. Family History Family History Problem Relation Name Age of Onset Lung Cancer Father Lymphoma Father Breast Cancer Father Other Problems (lung problems) Mother Heart Attack Brother No Known Problems Sister Breast Cancer Sister No Known Problems Son Thyroid Disease Daughter Social History Social History Tobacco Use Smoking status: Never Smokeless tobacco: Never Substance Use Topics Alcohol use: Yes Comment: 2 drinks a year Review of Systems Constitutional: Patient did not mention fever; no night sweats; no anorexia; no weight loss; no fatique NEENT: Patient did not mention headache; no change in vision; no change in hearing; no sore throat;no dysphagia Respiratory: Patient did not mention shortness of breath; no pleuritic chest pain; no cough; no hemoptysis Cardiac: Patient did not mention cardiac-like chest pain; no palpitations; no orthopnea; no PND; noDOE Breasts: Patient did not mention tenderness; no masses GI: Patient did not mention abdominal pain; no nausea; no vomiting; no diarrhea; no hematochezia; no melena : Patient did not mention dysuria; no frequency; no hesitancy; no hematuria AUTHORIZER: Musculosketetal: Patient did not mention bone pain; no arthralgia; no joint swelling; no myalgia; Skin: Patient did not mention pruritis; no rash; no petechiae; no ecchymoses Endocrine: Patient did not mention polydipsia; no polyuria; no unusual weight gain Neuro: Patient did not mention headache; no change in vision; no sensory changes; no muscle weakness; no confusion; no seizures Psych: Patient did not mention anxiety; no depression; Physical Exam Vitals: As per nursing note Constitutional: Well developed, well nourished, no acute distress, non-toxic appearance Teeth and gum. No signs of infection or swelling. Eyes: PERRL, conjunctiva normal HEENT: Atraumatic, external ears normal, nose normal, oropharynx moist, no pharyngeal exudates. no sinus tenderness Neck- normal range of motion, no tenderness, supple Respiratory: No respiratory distress, normal breath sounds, no rales, no wheezing Cardiovascular: Normal rate, normal rhythm, no murmurs, no gallops, no rubs GI: Soft, nondistended, normal bowel sounds, nontender, no splenomegaly, no hepatomegaly, no mass, no rebound, no guarding : No costovertebral angle tenderness Musculoskeletal: No edema, no tenderness, no deformities. Back- no tenderness Integument: Well hydrated, no rash, Digits and nails inspection normal Lymphatic: No lymphadenopathy noted Neurologic: Alert & oriented x 3, CN 2-12 normal, normal motor function, normal sensory function, no focal deficits noted Psychiatric: Speech and behavior appropriate ? labs No results found for this or any previous visit (from the past 24 hours). Labs from August 2024 showed WBC 5.5 hemoglobin 17.5 hematocrit 52.1 platelet 189,000 Pathology ? Imaging & Other Studies Performance Status? Assessment / Plan: ? Erythrocytosis. Patient is a 59-year-old slightly obese female with history of rheumatoidarthritis, hypertension, hyperlipidemia and prediabetes referred to me for erythrocytosis. She denies any history of smoking and COPD. Denies any history of sleep apnea. She is not using any hormone therapy. She also denies any history of thromboembolic events including stroke and heart attack. Myhas gained 30 pound weight in 1 year duration. She was on Mounjaro but that was discontinued 2 years ago and then she started gaining weight. I have reviewed the labs that showed elevated hemoglobin and hematocrit. Most likely this is due to obesity and recent weight gain. There is also possibility of underlying sleep apnea but she has not been officially diagnosed. At this time I will order the workup that will include CBC with differential, CMP, erythropoietin level and JAK2 mutation testing.I have recommended her to start taking baby aspirin once a day. Based on the repeat lab we will decide about phlebotomy to keep hematocrit less than 50. I have recommended regular exercise and weightloss. I have answered all the questions to patient satisfaction. Hypertension. Patient is on metoprolol. Rheumatoid arthritis. She is on leflunomide and Enbrel. Her symptoms are under control. Thank you very much for allowing me to participate in Fouzia Gunter's evaluation and management. Please feel free to contact if I can be of any further assistance in your patient???s care requiring hematology or oncology evaluation. Sincerely, ? ? Hilton Luciano M.D. cell TOBACCO COUNSELING She is not a tobacco/nicotine user. Hilton Luciano MD ,01/19/2025 4:37 PM ? Total time spent 60 minutes, two third of the total time spent counseling patient [id number]. CC:?Ramses stout MD documented in this encounter Plan of Treatment Upcoming Encounters Date Type Department Care Team (Late st Contact Info) Description 02/03/2025 4:30 PM CDT Telephone Check Up [facility] Oncology and Hematology - Enrique [address] [facility] [address] [place] [address] Hilton Luciano MD [address] [facility] [address] [place] [address] Scheduled Orders Name Type Priority Associated Diagnoses Orde r Schedule CBC WITH DIFFERENTIAL Lab Stat Erythrocytosis Expected: 01/19/2025, Expires: 01/19/2026 COMPREHENSIVE METABOLIC PANEL Lab Stat Erythrocytosis Expected: 01/19/2025, Expires: 01/19/2026 ERYTHROPOIETIN LEVEL Lab Routine Erythrocytosis Expected: 01/19/2025, Expires: 01/19/2026 JAK2 MUTATION Lab Routine Erythrocytosis Expected: 01/19/2025, Expires: 01/19/2026 documented as of this encounter Visit Diagnoses Diagnosis Shortness of breath- Primary Benign hypertension Essential hypertension, benign Rheumatoid arthritis of other site, unspecified whether rheumatoid factor present ([facility]/HCC) Esperanza's disease Chronic lymphocytic thyroiditis Erythrocytosis Reserved for inherently not codable concepts WITHOUT codable children documented in this encounter
--- OUTSIDE RECORDS SUMMARY | 2025-01-20 08:33 | XMS_ITS | Clinical Summary ---
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 Gender Identity Not on file Sexual Orientation Not on file Obstetrics History Last Filed Vital Signs Vital Sign Reading Time Taken Comments Blood Pressure 112/72 12/21/2022 2:10 PM CDT Pulse - - Temperature - - Respiratory Rate - - Oxygen Saturation - - Inhaled Oxygen Concentration - - Weight 98 kg (216 lb) 12/21/2022 2:10 PM CDT Height 175.3 cm (5' 9) 12/21/2022 2:10 PM CDT Body Mass Index [...] 2 - PCV) 10/16/1983 Influenza Vaccine (#1) 2024 Zoster Vaccine Completed 11/21/2021, 10/06/2021 Insurance [facility] PPO [place] Care Teams Easement Worker Relationship Specialty Start Date End Date Radha Rincon NP PCP - General Nurse Practitioner 11/14/22
--- OUTSIDE RECORDS SUMMARY | 2025-01-20 08:33 | XMS_ITS | Encounter Summary ---
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 Social History Tobacco Use Types Packs/Day Years Used Date Smoking Tobacco: Never Smokeless Tobacco: Never Alcohol Use Standard Drinks/Week Comments Not Currently 0 (1 standard drink = 0.6 oz pur e alcohol) PHQ-2 Answer Date Recorded Patient Health Questionnaire-2 Score 0 08/04/2024 Comments No Sex and Gender Information Value Date Recorded Sex Assigned at Not on file Legal Sex Female 2:00 PM CDT Gender Identity Not on file Sexual Orientation Not on file documented as of this encounter Plan of Treatment Upcoming Encounters Date Type Department Care Team (Late st Contact Info) Description 03/02/2025 2:20 PM 1ST GRADE TEACHER Office Visit [facility] - Rheumatology [address] [place] [phone] Giacomo Washburn MD [address] [place] [address] documented as of this encounter Visit Diagnoses Diagnosis Rheumatoid arthritis involving multiple sites with positive rheumatoid factor (HCC) 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 Encounter for therapeutic drug monitoring assisted current use of immunosuppressive drug documented in this encounter Care Teams Senior Infrastructure Engineer Relationship Specialty Start Date End Date Ly Wilson [facility] [place] [phone] PCP - General 08/20/23 documented as of this encounter
--- OUTSIDE RECORDS SUMMARY | 2025-01-20 08:33 | XMS_ITS | Clinical Summary ---
Author Organization [facility] Related Content Database (RCDb) Address [address] [place] [address] Care Team Providers Care Leasing Director Name Role Phone Ly Wilson Primary Care Provider [phone] Source Comments [facility] Related Content Database (RCDb),non-owned Affiliates and Associated Physician Practices is amultiple site organization consisting of ambulatory clinics and hospital sitesin [place], [place], [place] and [place]. This disclosure is being madepursuant to the Care Everywhere program and may not contain all information available regarding this patient. Last updated 18.[facility] Related Content Database (RCDb) Allergies Active Allergy Reactions Criticality Noted Date Comments Augmentin GI Discomfort Low 06/04/2018 Sulfa Drugs Urticaria Medium 03/31/2021 Sulfacetamide Rash Medium 06/04/2018 Tetanus Toxoid Swelling,Angioedema High 06/04/2018 Swelling up arm and neck. Medications * Be aware that medications may not be up to date on this document. Alwaysverify current medications with the patient. metoprolol succinate XL 24hr (TOPROL XL) 25 MG tablet Take 2 (two) tablets by mouth 1 (one) time 021 Active Enbrel AutoTouch AutoInjectorI ndications:Rh eumatoid arthritis involving multiple sites with positive rheumatoid factor (HCC) Use 1 (one) device as directed 024 Active vitamin D3 (Cholecalcife rol) 25 MCG (1000 UNITS) tablet Take 1 (one) tablet by mouth once daily Active Multiple Vitamins-Mine rals (HAIR SKIN & NAILS ADVANCED PO) Active leflunomide (Arava) 20 MG tablet Take 1 (one) tablet by mouth once daily 90 tablet 3 025 2025 Active Enbrel Mini 50 MG/ML SOCTIndicatio ns:Rheumatoid arthritis involving multiple sites with positive rheumatoid factor (HCC) INJECT 50 MG (1 ML) UNDER THE SKIN EVERY 7 DAYS FOR RHEUMATOID ARTHRITIS 4 mL 1 025 Active Etanercept (Enbrel Mini) 50 MG/ML SOCTIndicatio ns:Rheumatoid Arthritis Inject 50 mg subcutaneously every 7 days Reasons: Rheumatoid Arthritis 13 Cartridge 3 024 2024 Discontinued Active Problems Problem Noted Date Diagnosed Date 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 01/06/2021 Rheumatoid arthritis involvi ng multiple sites with positive rheumatoid factor 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 12/02/2020 FAYE positive 12/02/2020 Encounters Date Type Department Care Team Description 01/16/2025 Orders Only [facility] - Rheumatology [address] [place] [phone] Giacomo Washburn MD Rheumatoid arthritis involving multiple sites with positive rheumatoid factor (HCC); 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; correction current use of immunosuppressive drug 12/15/2024 Refill [facility] - Rheumatology [address] [place] [phone] Giacomo Washburn MD Refill Request 11/21/2024 Orders Only [facility] - Rheumatology [address] [place] [phone] Giacomo Washburn MD Rheumatoid arthritis involving multiple sites with positive rheumatoid factor (HCC); 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; correction current use of immunosuppressive drug from Last [...] Sign Reading Time Taken Comments Blood Pressure 138/80 08/04/2024 2:14 PM CDT Pulse 61 08/04/2024 2:14 PM CDT Temperature 36.7 C (98.1 F) 08/04/2024 2:14 PM CDT Respiratory Rate 18 11/02/2021 10:16 AM CDT Oxygen Saturation 92% 08/04/2024 2:14 PM CDT Inhaled Oxygen Concentration - - Weight 112.5 kg (248 lb) 08/04/2024 2:14 PM CDT Height 175.3 cm (5' 9) 08/04/2024 2:14 PM CDT Body Mass Index 36.62 08/04/2024 2:14 PM CDT Plan of Treatment Upcoming Encounters Date Type Department Care Team (Late st Contact Info) Description 03/02/2025 2:20 PM DRAWING KILN SUPERVISOR Office Visit [facility] - Rheumatology [address] [place] [address], [place] [phone] Giacomo Washburn MD [address] [place] [phone] Health Maintenance Due Date Last Done Comments COLOGUARD (AGES 45-75) - COLON CA SCREENING 1964 COLON MONITORING 1964 COLONOSCOPY - COLON CA SCREENING 1964 CT COLONOGRAPHY - COLON CA SCREENING 1964 Colorectal Cancer Screening 1964 FIT - COLON CA SCREENING 1964 FLEX SIG - COLON CA SCREENING 1964 LIPID TESTING 1964 MAMMOGRAM 1964 HIV SCREENING 10/16/1979 HEPATITIS C SCREENING 10/11/1982 DTAP/TDAP/TD VACCINES (1 - Tdap) 10/16/1983 PAP SMEAR 1985 PNEUMOCOCCAL VACCINE 50+ (1 of 1 - PCV) 2014 ZOSTER VACCINE (1 of 2) 2014 COVID-19 VACCINE (1 - season) 2024 INFLUENZA VACCINE (#1) 2024 SCREENING FOR DIABETES 08/01/2027 , 05/30/2024, 02/08/2024, Additional history exists Respiratory Syncytial Virus (RSV) Vaccine Pt: or over 60 yrs (1 - 1-dose 75+ series) 10/16/2039 DEPRESSION SCREENING Completed 08/04/2024, 08/20/2023, 08/17/2022, Additional history exists HEPATITIS B VACCINE Aged Out No longe r eligible based on patient's age to complete this topic HIB VACCINE Aged Out No longer eligi ble based on patient's age to complete this topic HPV VACCINE Aged Out No longer eligi ble based on patient's age to complete this topic MENINGOCOCCAL (Group B) VACCINE SHARED DECISION-MAKING Aged Out No longer eligible based on patient's age to complete this topic MENINGOCOCCAL GROUPS A/C/Y/W VACCINE Aged Out No longer eligible based on patient's age to complete this topic Procedures Procedure Name Priority Date/Time Associated Diagnosis Comments COMPREHENSIVE METABOLIC PANEL Routine 07/31/2024 9:38 AM CDT Rheumatoid arthritis involving multiple sites with positive rheumatoid factor (HCC) 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 correction current use of immunosuppressive drug from Last 3 Months or Most Recently Relevant to Health Maintenance Results * (ABNORMAL) COMPREHENSIVE METABOLIC PANEL (07/31/2024 9:38 AM CDT) Glucose 117(H) 65 - 99 mg/dL [facility] Comment: Fasting reference interval For someone without known diabetes, a glucose value between 100 and 125 mg/dL is consistent with prediabetes and should be confirmed with a follow-up test. BUN 15 7 - 25 mg/dL [facility] Creatinine 0.83 0.50 - 1.03 mg/dL [facility] eGFR by Cystatin C 81 > OR = 60 mL/min/1. 73m2 [facility] BUN/Creatinine Ratio SEE NOTE: 6 - 22 (calc) [facility] Comment: Not Reported: BUN and Creatinine are within reference range. Sodium 139 135 - 146 mmol/L [facility] Potassium 4.3 3.5 - 5.3 mmol/L [facility] Chloride 103 98 - 110 mmol/L [facility] CO2 29 20 - 32 mmol/L [facility] Calcium 9.5 8.6 - 10.4 mg/dL [facility] Protein Total 6.8 6.1 - 8.1 g/dL [facility] Albumin 4.2 3.6 - 5.1 g/dL [facility] Globulin Total 2.6 1.9 - 3.7 g/dL (calc) [facility] Albumin/Globulin Ratio 1.6 1.0 - 2.5 (calc) [facility] Bilirubin Total 0.6 0.2 - 1.2 mg/dL [facility] Alkaline Phosphatase 92 37 - 153 U/L [facility] AST 17 10 - 35 U/L [facility] ALT 17 6 - 29 U/L [facility] Comment: Test Performed at: [facility] [address] EDSON SANDERSON MD Blood BLOOD SPECIMEN / Unknown 07/31/2024 9:38 AM CDT 07/31/2024 9:39 AM CDT Giacomo Washburn MD LAB - CHEMISTRY ORDERABLES Final Result [address] [id number] from Last 3 Months or Most Recently Relevant to Health Maintenance Insurance [facility] [facility] Address: [facility] [address] [place] [address] [employer] Care Teams Leasing Director Relationship Specialty Start Date End Date Ly Wilson [facility] [place] [address] PCP - General 08/20/23
--- OUTSIDE RECORDS SUMMARY | 2025-01-20 08:33 | XMS_ITS | Clinical Summary ---
Author Organization [facility] [address] Address [address] [place] [address] Care Team Providers Care Alpaca Farmer Name Role Phone Unavailable Primary Care Provider Unavailabl e Allergies Active Allergy Reactions Criticality Noted Date Comments Amoxicillin-Pot Clavulanate Nausea and Vomiting High 06/04/2018 Sulfa Dyne Hives High 03/31/2021 Tetanus And Diphther. Tox (Pf) Anaphylaxis High 05/17 Medications metoprolol succinate (TOPROL XL) 50 mg Extended Release 24 hour tablet Take 50 mg by mouth daily. for high blood pressure 5 Active EnbreL Mini 50 mg/mL (1 mL) Cartridge Inject 50 mg by subcutaneous injection every 7 days. 5 Active leflunomide (ARAVA) 20 mg Tablet Take 20 mg by mouth daily. 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/2025 Encounters Date Type Department Care Team Description 01/19/2025 3:00 PM CDT Office Visit [facility] - [place] [address] [place] [address] Hilton Luciano MD Shortness of breath (Primary Dx); Benign hypertension; Rheumatoid arthritis of other site, unspecified whether rheumatoid factor present (CMS/HCC); Esperanza's disease; Erythrocytosis from Last 3 Months Family History Medical History Relation Name Comments Heart Attack Brother Thyroid Disease Daughter Breast Cancer Father Lung Cancer Father Lymphoma Father lung problems Mother No Known Problems Sister 1 Breast Cancer Sister 2 No Known Problems Son Relation Name Status Comments Brother Daughter Alive Father Mother Sister 1 Alive Sister 2 Alive Son Alive Social History Tobacco Use Types Packs/Day Years [...] Mass Index 35.77 01/19/2025 2:53 PM CDT Plan of Treatment Upcoming Encounters Date Type Department Care Team (Late st Contact Info) Description 02/03/2025 4:30 PM CDT Telephone Check Up [facility] - [place] [address] [facility] [address] [place] [phone] Hilton Luciano MD [address] [facility] [place] [address] Health Maintenance Due Date Last Done Comments Pre-Diabetes and Diabetes Screening 1964 DTAP/TDAP/TD VACCINES (1 - Tdap) 10/16/1983 HPV/Cotest (21-29) 1985 CERVICAL CANCER SCREENING 1994 HPV/Cotest (30-65) 1994 PAP SMEAR 1994 BREAST CANCER SCREENING 2004 COLORECTAL SCREENING 2009 Colorectal Cancer Screening 2009 FIT-DNA Q 3 years 2009 FIT/FOBT Q 1 year 2009 Flex Sig/CT Colonography Q 5 years 2009 Preventative Visit- Commercial 04/16/2024 INFLUENZA VACCINE (#1) 2024 RSV VACCINE (60+ or ) (1 - 1-dose 75+ series) 10/16/2039 ZOSTER VACCINE Completed 11/21/2021, 10/06/2021 HEPATITIS B VACCINES Aged Out No long er eligible based on patient's age to complete this topic Insurance
[2025-01-20 08:42] LABS: Hematocrit 49.5 % (37.0-47.0); Hemoglobin 15.9 g/dL (12.0-15.0); Immature Granulocyte Percent A 0.2 % (0-0.5); Lymphocytes Absolute Auto 1.94 K/mm3 (0.9-3.2); Mean Corpuscular HGB Conc 32.1 g/dl (32-36); Mean Corpuscular Hemoglobin 30.5 pg (26-34); Mean Corpuscular Volume 94.8 fl (80-100); Nucleated Red Blood Cells Absolute Auto 0.000 K/mm3 (0.0-0.012); Nucleated Red Blood Cells Perc 0.0 % (0.0-0.2); Platelet Count Result 177 k/mm3 (150-375); Red Blood Count 5.22 M/mm3 (4.2-5.4); White Blood Count 5.0 K/mm3 (4.5-10.0)
[2025-01-20 09:58] LABS: Alanine Aminotransferase 26 U/L (6-35); Albumin Level 3.9 g/dL (3.5-5.1); Alkaline Phosphatase 108 U/L (38-126); Anion Gap -4 mmol/L (4-12); Aspartate Amino Transferase 34 U/L (14-36); Bilirubin,Total 0.6 mg/dL (0.2-1.3); Blood Urea Nitrogen 14 mg/dL (7-17); Calcium 9.1 mg/dL (8.4-10.2); Carbon Dioxide 29 mmol/L (22-30); Chloride 103 mmol/L (98-107); Estimated Glomerular Filt Rate > 60; Glucose 114 mg/dL (65-110); Potassium 4.0 mmol/L (3.4-5.0); Sodium 128 mmol/L (137-145); Total Protein 7.3 g/dL (6.3-8.2)
[2025-01-28 15:09] LABS: CALR + MPL + E12-E15 YES YES
== END 2025-01-20 08:23 | disposition home or self-care (01) ==
PROVIDERS: PCP Nurse Practitioner Family; Visit Provider Internal Medicine Hematology & Oncology
DX: D75.1 Secondary polycythemia (principal)
CPT/HCPCS: 36415; 80053; 81219; 81270; 82668; 85025